=== PATIENT | female | born 1950 | race Caucasian/White ===

== ENCOUNTER 2018-07-29 20:23 | Emergency (ER) | payer MEDICARE ==
--- OUTSIDE RECORDS SUMMARY | 2018-07-29 20:42 | XMS REPORT ---
:1950 External Reference #:[id number] Author Organization [facility] Address [address] [place] [address] Phone [phone] Care Team Providers Name Role Phone Ziyad Zhang MD Care Team Information Meter Readers Supervisor Unavailable Ziyad Zhang MD Primary Care Physician Unavailable Payers Type Date Identification Numbers Payment Provider Subscriber Commercial Effective: Policy Number: Medicare Blue Ppo Medina Correia 2015 [id number] PayID: [id number] [address] [address] [place] [address] Problems Date Description Provider Status Onset: 10/16/2011 Otitis media Ej Schilling M.D. Active Onset: 06/08/2012 Generalized anxiety disorder Ej Schilling M.D. Active Onset: 06/08/2012 Dysthymia Ej Schilling M.D. Active Onset: 01/02/2017 Hypothyroidism Ziyad Zhang M.D. Active Family History Date Family Member(s) Problem(s) Comments Father Long Lived Mother Long Lived Social History Type Date Description Comments Cigarette Use nonsmoker Smoking nonsmoker Allergies, Adverse Reactions, Alerts Date Description Reaction Status Severity Comments 06/08/2012 NKDA active Medications Medication Date Status Form Strength Qnty SIG Indications Ordering Provider Lexapro 05/13 Active Tablets 20mg 30tabs Take One Ziyad Chiu Tablet Breiman, By Mouth M.D. Every Day Synthroid 03/05 Active Tablets 50mcg 30tabs Take One Ziyad Chiu Tablet Breiman, By Mouth M.D. Every Day Gabapentin 05/02 Hx Capsules 100mg 100caps take one Ziyad Chiu capsule Breiman, - by mouth M.D. 10/17 twice day then advance to 2 bid if able Estrace 03/23 Hx Tablets 0.5mg 30tabs use 1 Ziyad Chiu pill a Breiman, - day for M.D. 05/02 days only Lamictal 03/03 Hx Tablets 25mg 30tabs use 1 Ziyad Chiu pill Breiman, - daily M.D. 05/02 Cytomel 04/09 Hx Tablets 5mcg 2 by Ziyad Chiu mouth Breiman, - every M.D. Cytomel 04/09 Hx Tablets 5mcg 60tabs 2 by Ziyad Chiu mouth Breiman, - every M.D. Wellbutrin XL 03/05 Hx Tablets 150mg 90tabs Take One Ziyad Chiu ER 24HR Tablet Breiman, - By Mouth M.D. 07/14 Day Cytomel 02/01 Hx Tablets 5mcg 30tabs 1 by Ziyad Chiu mouth Breiman, - every M.D. Synthroid 01/08 Hx Tablets 25mcg 90tabs 1 by Ziyad Chiu mouth Breiman, - every M.D. Keflex 08/01 Hx Capsules 500mg 14caps 1 tab by Caridad mouth Lomax, - twice a M.D. 01/02 day x week Amoxicillin 07/22 Hx Tablets 500mg 30tabs 1 by Funmilayo mouth Lindsay, - three Afnp-C 08/01 times day Meclizine HCL 09/18 Hx Tablets 25mg 30tabs take 1 H81.10 tablet Damon, - three Afnp-C 09/25 times day if needed for dizzines s Physical 09/18 Hx treatmen H81.10 t and Damon, - evaluati Afnp-C 09/26 on vertigo Doxycycline 08/01 Hx Tablets 100mg 2tabs 2 by S20.469A Funmilayo mouth x Lindsay, - 1 Afnp-C 08/02 Boniva 03/13 Hx Tablets 150mg 3tabs 1 po Marielena /2015 monthly; Sobia, - take on TIN DIPPER 07/22 same day each month sit upright 30" post admin, take with plenty water Nasonex 10/29 Hx Suspensio 50mcg/Act sample 2 786.2 n sprays/n Eri, - ostril/d TIN DIPPER 02/16 Tussafed Ex 10/14 Hx Liquid 10-30-200 50ml 5 ml po 786.2 Marielena /2013 mg/5ML bid prn Sobia, - cough TIN DIPPER 10/29 Ibuprofen 10/14 Hx Tablets 800mg 60tabs take 1 488.82 Marielena /2013 tablet Sobia, - po bid TIN DIPPER 10/29 prn pain Zithromax Z-Kamari 10/14 Hx Tablets 250mg 1Pack as Ziyad Chiu /2012 directed Vicente - M.D. 10/29 Escitalopram 02/23 Hx Tablets 20mg 30tabs take one Ziyad Chiu tablet Vicente, - by mouth M.D. 05/13 day brand name only Amoxicillin 10/16 Hx Tablets 500mg 30tabs 1 po tid 382.9 Pagan A. Yesenia Schilling - 06/08 Claritin-D 24 10/16 Hx Tablets 10-240mg 10tabs 1 po qd 382.9 Pagan A. ER 24HR Yesenia Schilling - 06/08 Lexapro 01/06 Hx Tablets 20mg 90tabs 1 po qd Id#[id number] Eri - 9178 [facility] 02/23 Wellbutrin XL 01/06 Hx Tablets 150mg 90tabs 1 po qd Pagan A. ER 24HR Id#[id number] Yesenia Schilling - 9178 10/14 Topicort 06/28 Hx Cream 0.25% 15units rub in Ziyad Chiu /2009 sparingl Vicente, - y bid M.D. 10/16 prn Cortisporin 06/28 Hx Solution 1units 2gtts Ziyad Chiu Ot tid x Vicente, - 5 days M.D. 01/13 Levaquin 08/03 Hx Tablets 750mg 5tabs 1 po qd 473.0 Jacque Bentley Yaritza Vidal M.D. 06/28 Note 08/03 Hx please Ej Fulton excuse Yesenia Schilling - shilo 06/28 work today and tomorrow due to illness thanks Lexapro 04/14 Hx Tablets 10mg 90tabs 1 PO qd Id#[id number] Eri - 9178 [facility] 01/06 Lamictal 04/14 Hx Tablets 100mg 1 PO qd [facility] 06/28 [place] Lexapro 10/25 Hx Pills 10mg 30units 1 PO qd Ziyad Chiu Yaritza Zhang M.D. 04/14 Wellbutrin 10/25 Hx Tablets 75mg 90tabs 1 tid Id# Eri - [id number] [facility] 01/06 Prozac 10/18 Hx Capsules 10mg 30caps 1 po qd Ziyad Chiu In Yaritza Zhang M.D. 04/14 Current Prozac 20MG. Prozac 10/07 Hx Capsules 20mg 30caps 1 po qd Ziyad Chiu Yaritza Zhang M.D. 04/14 Prozac 09/22 Hx Capsules 10mg 30caps 1 po qd Ziyad Chiu Yaritza Zhang M.D. 10/07 Cortisporin 09/22 Hx Solution 5mg;37521 1units Use 1-2 Ziyad Chiu Otisai /2006 U;10mg/ML gtts Yaritza Zhang tisahara Reynoso M.D. 08/03 5D Vivelle 05/27 Hx Patches 0.075mg/D ay [facility] 06/28 Lunesta 05/27 Hx Tablets 2mg 30tabs 1 QHS 780.52 Yaritza Jose Afnp-C 04/14 Augmentin 10/20 Hx Tablets 875mg 20tabs 1 po bid Ángel Royal with Rosemarie - food x Yesenia 04/14 10 days Zithromax 10/17 Hx Tablets 250mg 6tabs 2 Tabs 461.9 Day 1 Damon, - Afnp-C 10/20 1 Tab qd Days 2 Thru 5 PT 08/19 Hx Bilat Hand Hiljayant, - Pain, Afnp-C 10/17 Related To Overuse Nizoral Shampoo 05/20 Hx Shampoo 2% [facility] 06/19 Areas 2X Week X 1Month Synalar 05/20 Hx Lotion 0.025% 60ml [facility] bid Afnp-C 05/20 Pramosone 05/20 Hx Lotion 1%;1 % 60ml Apply To Affected [facility], - Area tid Afnp-C 06/03 Vivelle 12/16 Hx Patches 0.075mg/D 25units Twice ay Weekly [facility] 12[facility]25 [facility] [place] Amoxicillin 12/16 Hx Tablets 500mg 30tabs 1 tid X 10 Days Damon, - Afnp-C 12/26 Ciprofloxacin 10/17 Hx Suspensio Otic 10ml 3 gtts n into r Damon, - ear bid Afnp-C 10/24 x 7 days Cymbalta 03/24 Hx Capsules 15mg 30caps 1 po qd Ziyad JManju Yaritza Zhang M.D. 03/24 Cymbalta 03/24 Hx Capsules 30mg 14caps 1 po qd Ziyad J. Yaritza Zhang M.D. 05/27 Zithromax 01/06 Hx 250mg 6units 2 tabs day 1 Eri, - TIN DIPPER 10/17 1 tab qd days 2 thru 5 Rhinocort Aqua 01/06 Hx Inhaler Sample 2 sprayS in each Eri, - nostril TIN DIPPER 12/16 qd Keflex 11/28 Hx 500mg 30units 1 po tid Eri, - TIN DIPPER 01/06 Cortisporin 11/28 Hx Solution 10ml 3-4 gtts Denia Ot AU tid X Eri, - 4-5 Days TIN DIPPER 10/17 [place] 06/20 Hx Cream 2Oz apply to skin Damon, - from Afnp-C 11/28 neck down, leave on for 12 hours then wash off Actonel 11/08 Hx 35mg 4units 1 X Week [facility] 09/22 [facility] [place] Menest 11/08 Hx use as directed [facility] 05/08 [facility] [place] Keflex 11/08 Hx 500mg 20units 1 po tid Ziyad J. /2003 X 7 Days Yaritza Zhang M.D. 05/08 Zithromax 01/13 Hx 250mg 6units 2 Tabs Denia Day 1 Eri, - TIN DIPPER 11/08 1 Tab qd Days 2 Thru 5 Zyrtec 01/13 Hx 10mg 30units 1 P PO Denia qd Eri, - TIN DIPPER 05/08 Keflex 08/31 Hx 500mg 30units 1 tid Ziyad Chiu /2001 Yaritza Zhang M.D. 01/13 Antivert 05/20 Hx 25mg 30units 1 tid Ziyad Chiu prn Yaritza Zhang M.D. 01/13 Elimite Cream 08/23 Hx 60Gmtube Apply To ALL Skin Eri, - Surfaces TIN DIPPER 09/02 From Neck Down And Wash Off After 12 To 14 Hours. Hydrocortisone 09/29 Hx 2.5% 30gm apply Funmilayo Cream bid prn Hiljayant, - Afnp-C 10/17 Clarinex 09/29 Hx 10mg 30units 1 qd prn Damon, - Afnp-C 10/09 Cortisporin 07/21 Hx Solution 1Bottle 3-4 gtts Brittny Ot Into Damon, - Left Ear Afnp-C 07/28 tid Prozac 05/27 Hx 10mg 90units 1 po qd Denia Eri, - TIN DIPPER 12/16 Prozac 03/18 Hx 20mg 30units 1 qam Ziyad Chiu /1999 Yaritza Zhang M.D. 04/17 Celexa 12/17 Hx 20mg 30units 1 qd Ziyad Chiu /1999 Yaritza Zhang M.D. 05/27 Prozac 07/15 Hx 20mg 0units 1 qam Ziyad Chiu /1998 Yaritza Zhang M.D. 12/10 Z-Pack 07/15 Hx 1units as Ziyad Chiu /1998 Yaritza Nielson M.D. 07/21 Keflex 05/24 Hx 250mg 28units 1 PO qid Ziyad Chiu /1998 Yaritza Zhang M.D. 07/15 Z-Pack 06/28 Hx 1units as 461.9 Shauna lincoln Kirk [employer] - 02/25 Flonase 06/28 Hx Nasal Oneinhalr 2 Sprays Sray Each Konefal, - Nostril SLEEVE SEPARATOR-F 10/03 Cephalexin 06/22 Hx 20units 1 bid For 10 Konefal, - Day SLEEVE SEPARATOR-F 07/02 Entex Pse 06/22 Hx 20units 1 PO Q 12 HRS Konefal, - prn Head SLEEVE SEPARATOR-F 06/22 Congesti /1997 on Guafenesin 06/22 Hx 600mg 14units Take Twice A Konefal, - Day as SLEEVE SEPARATOR-F 06/29 Needed For Congesti on, Ear Blockage Prozac 03/07 Hx 20mg 30units 1 PO qd Ziyad Chiu /1997 Yaritza Zhang M.D. 07/15 Paxil 02/23 Hx 10mg 30units 1 PO qd Ziyad Chiu /1997 Yaritza Zhang M.D. 03/07 Keflex 09/14 Hx 5Oomg 14units 1 PO bid Ziyad Chiu /1996 Yaritza Zhang M.D. 09/21 Prozac 05/19 Hx 10mg 0units 1 PO qam Ziyad Chiu /1996 Yaritza Zhang M.D. 09/06 Boniva Hx 150mg 4units [address] [facility] 02/16 Wellbutrin XL Hx Tablets 300mg 1 by Unknown /0000 ER 24HR mouth - every 09/18 day- Isabel ignacio Wellbutrin SR 00 Hx Tablets 100mg 1 by Unknown /0000 ER 12HR mouth - every 01/02 day- Isabel ignacio Immunizations CPT Code Status Date Vaccine Lot # [id number] Given 07/08/2018 High-Dose, Influenza Virus Vacccine-fluzone 65 and [id number] older [id number] Given 09/10/2017 High-Dose, Influenza Virus Vacccine-fluzone 65 and [id number] older 94691 Given 01/02/2017 Pneumococcal Conjugate Vacc-13 [id number] 59598 Given 07/22/2016 Influenza Vac, Quadrivalent, Slit Virus, Im [id number] 78086 Given 08/01/2015 Influenza Vac, Quadrivalent, Slit Virus, Im [id number] 38975 Given 07/01/2014 DO Not Use Split Influenza Virus Vaccine [id number] 46823 Given 07/13/2013 DO Not Use Split Influenza Virus Vaccine [id number] 77452 Given 08/05/2007 DO Not Use Split Influenza Virus Vaccine Vital Signs Date Vital Result Comment 07/28/2018 BP Systolic 106 mmHg BP Diastolic 64 mmHg Heart Rate 78 /min Body Temperature 98.1 F Respiratory Rate 16 /min Height 60 inches 5'0" Weight 124.50 lb BMI (Body Mass Index) 24.3 kg/m2 01/02/2017 BP Systolic 100 mmHg BP Diastolic 70 mmHg Heart Rate 60 /min Body Temperature 98.0 F Respiratory Rate 18 /min Height 60 inches 5'0" Weight 127.00 lb BMI (Body Mass Index) 24.8 kg/m2 07/22/2016 BP Systolic 122 mmHg BP Diastolic 74 mmHg Heart Rate 84 /min Body Temperature 98.2 F Respiratory Rate 18 /min O2 % BldC Oximetry 98 % Height 62 inches 5'2" Weight 130.00 lb BMI (Body Mass Index) 23.8 kg/m2 09/18/2015 BP Systolic 130 mmHg BP Diastolic 90 mmHg Heart Rate 72 /min Body Temperature 98.6 F Respiratory Rate 16 /min Height 62 inches 5'2" Weight 128.38 lb BMI (Body Mass Index) 23.5 kg/m2 08/01/2015 BP Systolic 110 mmHg BP Diastolic 56 mmHg Heart Rate 76 /min Body Temperature 99.1 F Respiratory Rate 16 /min Height 62 inches 5'2" Weight 126.00 lb BMI (Body Mass Index) 23.0 kg/m2 03/13/2015 BP Systolic 130 mmHg BP Diastolic 84 mmHg Heart Rate 88 /min Body Temperature 99.2 F Respiratory Rate 16 /min Height 62 inches 5'2" Weight 124.00 lb BMI (Body Mass Index) 22.7 kg/m2 02/16/2015 BP Systolic 120 mmHg BP Diastolic 80 mmHg Heart Rate 78 /min Body Temperature 98.5 F Respiratory Rate 16 /min Height 62 inches 5'2" Weight 125.00 lb BMI (Body Mass Index) 22.9 kg/m2 07/13/2013 BP Systolic 112 mmHg BP Diastolic 70 mmHg Heart Rate 74 /min Body Temperature 98.1 F Respiratory Rate 16 /min Height 62 inches 5'2" Weight 125.00 lb BMI (Body Mass Index) 22.9 kg/m2 10/29/2012 BP Systolic 100 mmHg BP Diastolic 72 mmHg Heart Rate 68 /min Body Temperature 97.6 F Height 62 inches 5'2" Weight 127.00 lb BMI (Body Mass Index) 23.2 kg/m2 10/14/2012 BP Systolic 110 mmHg BP Diastolic 80 mmHg Heart Rate 112 /min Body Temperature 101.8 F Height 62 inches 5'2" Weight 130.25 lb BMI (Body Mass Index) 23.8 kg/m2 06/08/2012 BP Systolic 118 mmHg BP Diastolic 76 mmHg Heart Rate 78 /min Body Temperature 97.3 F Height 62 inches 5'2" Weight 130.00 lb BMI (Body Mass Index) 23.8 kg/m2 10/16/2011 BP Systolic 96 mmHg BP Diastolic 72 mmHg Heart Rate 102 /min Body Temperature 97.4 F Height 62 inches 5'2" Weight 130.00 lb BMI (Body Mass Index) 23.8 kg/m2 06/28/2010 BP Systolic 104 mmHg BP Diastolic 72 mmHg Heart Rate 84 /min Body Temperature 98.5 F Height 62 inches 5'2" Weight 128.00 lb BMI (Body Mass Index) 23.4 kg/m2 07/23/2009 BP Systolic 122 mmHg BP Diastolic 70 mmHg Heart Rate 80 /min Body Temperature 99.1 F Height 62 inches 5'2" Weight 130.00 lb BMI (Body Mass Index) 23.8 kg/m2 08/03/2008 BP Systolic 106 mmHg BP Diastolic 68 mmHg Heart Rate 88 /min Body Temperature 99.3 F Weight 126.00 lb 04/14/2008 BP Systolic 120 mmHg BP Diastolic 80 mmHg Heart Rate 80 /min Body Temperature 99.2 F Respiratory Rate 12 /min Weight 126.00 lb 09/22/2007 BP Systolic 118 mmHg BP Diastolic 68 mmHg Heart Rate 76 /min Body Temperature 97.7 F Weight 127.00 lb 05/27/2007 BP Systolic 160 mmHg BP Diastolic 60 mmHg Heart Rate 64 /min Body Temperature 97.6 F Weight 129.00 lb 12/25/2006 BP Systolic 130 mmHg BP Diastolic 80 mmHg Body Temperature 98.4 F Weight 125.00 lb 10/17/2006 BP Systolic 108 mmHg BP Diastolic 76 mmHg Heart Rate 80 /min Body Temperature 97.4 F Weight 125.00 lb 08/19/2006 BP Systolic 104 mmHg BP Diastolic 60 mmHg Heart Rate 78 /min Respiratory Rate 12 /min Weight 128.00 lb 05/20/2006 BP Systolic 118 mmHg BP Diastolic 68 mmHg Heart Rate 76 /min Body Temperature 98.1 F Respiratory Rate 15 /min 12/16/2005 BP Systolic 120 mmHg BP Diastolic 80 mmHg Heart Rate 76 /min Body Temperature 98.4 F 10/17/2005 BP Systolic 122 mmHg BP Diastolic 60 mmHg Body Temperature 99.2 F 08/13/2005 BP Systolic 118 mmHg BP Diastolic 72 mmHg Heart Rate 70 /min Body Temperature 98.1 F Weight 121.00 lb 02/12/2005 BP Systolic 134 mmHg BP Diastolic 86 mmHg Heart Rate 78 /min Body Temperature 98.8 F Weight 123.00 lb 01/27/2005 BP Systolic 126 mmHg BP Diastolic 90 mmHg Heart Rate 78 /min Body Temperature 98.2 F Weight 123.00 lb 11/28/2004 BP Systolic 112 mmHg BP Diastolic 70 mmHg Body Temperature 98.3 F 05/08/2004 BP Systolic 122 mmHg BP Diastolic 76 mmHg Heart Rate 74 /min Weight 121.00 lb 11/08/2003 BP Systolic 122 mmHg BP Diastolic 70 mmHg Body Temperature 98.6 F 01/13/2003 BP Systolic 110 mmHg BP Diastolic 70 mmHg Body Temperature 97.9 F Weight 127.00 lb 08/31/2002 BP Systolic 140 mmHg BP Diastolic 90 mmHg Heart Rate 84 /min Weight 123.00 lb 08/23/2001 Body Temperature 97.6 F Weight 123.00 lb 07/28/2001 BP Systolic 110 mmHg BP Diastolic 78 mmHg Heart Rate 68 /min Weight 127.00 lb 09/29/2000 BP Systolic 116 mmHg BP Diastolic 68 mmHg Heart Rate 76 /min Body Temperature 97.4 F Weight 124.00 lb 07/21/2000 BP Systolic 108 mmHg BP Diastolic 70 mmHg Body Temperature 97.7 F Weight 121.00 lb 05/27/2000 BP Systolic 120 mmHg BP Diastolic 70 mmHg Weight 121.00 lb 12/11/1999 BP Systolic 100 mmHg BP Diastolic 70 mmHg Weight 121.50 lb 05/24/1999 Body Temperature 99.0 F Weight 122.00 lb 10/03/1998 BP Systolic 136 mmHg BP Diastolic 80 mmHg Weight 127.00 lb 07/03/1998 BP Systolic 120 mmHg BP Diastolic 80 mmHg Body Temperature 97.5 F Weight 126.00 lb 06/22/1998 BP Systolic 110 mmHg BP Diastolic 80 mmHg Weight 123.00 lb 02/23/1998 Weight 122.50 lb 01/31/1998 BP Systolic 120 mmHg BP Diastolic 80 mmHg Body Temperature 98.8 F With Asa Height 61 inches 5'1" Weight 121.00 lb 09/06/1997 BP Systolic 130 mmHg BP Diastolic 90 mmHg Body Temperature 97.0 F Weight 120.00 lb Results Test Date Test Result H/L Range Note Laboratory test finding 02/02/2018 Sedimentation Rate 5mm Lyme, Western Blot, Serum 02/02/2018 IgG P93 Ab. Absent 1 IgG P66 Ab. Absent 1 IgG P58 Ab. Absent 1 IgG P45 Ab. Absent 1 IgG P41 Ab. Absent 1 IgG P39 Ab. Absent 1 IgG P30 Ab. Absent 1 IgG P28 Ab. Absent 1 IgG P23 Ab. Absent 1 IgG P18 Ab. Absent 1 Lyme IgG WB Interp. Negative 1, 2 IgM P41 Ab. Absent 1 IgM P39 Ab. Absent 1 IgM P23 Ab. Absent 1 Lyme IgM WB Interp. Negative 1, 3 Laboratory test finding 02/02/2018 Estrogens, Total 44 pg/mL 1, 4 Cortisol, Baseline 17.6 g/dL 1, 5 CBC Electronic Fma 02/02/2018 WBC 4.9 x10^3/UL 4.0-10.0 RBC 4.39 x10^6/UL 3.93-6.00 HGB 13.7 g/dL 12.0-17.0 HCT 41 % 35-50 MCV 93.2 fL 80.0-95.0 MCH 31.2 pg 25.6-32.2 MCHC 33.5 g/dL 32.2-36.0 RDW-CV 12.8 % 11.6-14.4 PLT 250 x10^3/UL 163-400 MPV 10.4 fL 9.4-12.4 Vashti# 2.61 x10^3/UL 1.56-6.13 Lymph# 1.53 x10^3/UL 1.18-3.74 Pope# 0.47 x10^3/UL 0.24-0.82 Eos # 0.2 x10^3/UL 0.0-0.5 Baso # 0.04 x10^3/UL 0.01-0.08 Vashti% 53.5 % 34.0-70.0 Lymph % 31.4 % 20.0-52.0 Pope% 9.6 % 5.0-12.0 Eos% 4.5 % 0.7-7.0 Baso% 0.8 % 0.1-1.2 Laboratory test finding 02/02/2018 Serum Iron 112 g/dL 60-150 Vitamin B-12 433 pg/mL 230-1050 TSH 2.20 mIU/L 0.50-6.00 Free T4 1.05 ng/dL 0.75-1.54 Free T3 2.01 pg/mL 2.00-4.90 CK 110 U/L 26-140 FSH, Serum 02/02/2018 FSH 98.7 mIU/mL 1, 6 Laboratory test finding 02/02/2018 C-Reactive Protein, 0.5 mg/L 0.0-4.9 1 Quant Antinuclear Antibodies, Ifa Negative 1, 7 Comprehensive Metabolic Prof 02/02/2018 Sodium 134 mEq/L 134-149 Potassium 4.3 mEq/L 3.6-5.5 Chloride 99 mEq/L 94-112 Carbon Dioxide 25 mEq/L 21-32 Glucose 104 mg/dL 70-105 BUN 17 mg/dL 6-26 Creatinine 0.7 mg/dL 0.6-1.4 BUN/Creat Ratio 24.3 CALC 8.0-36.0 Calcium 9.5 mg/dL 8.6-10.2 Total Protein 6.6 g/dL 6.4-8.3 Albumin 4.4 g/dL 3.8-5.5 Globulin 2.2 g/dL 2.0-4.8 A/G Ratio 2.0 CALC 0.6-2.3 Alk. Phosphatase 73 U/L 30-110 Alt (SGPT) 36 U/L High 7-35 8 Ast (Sgot) 28 U/L 5-34 Total Bilirubin 0.4 mg/dL 0.2-1.3 GFR Non- >60 ml/min/1.73m^ >=60 GFR >60 ml/min/1.73m^ >=60 Laboratory test finding 06/08/2017 TSH 0.33 mIU/L Low 0.50-6.00 9 Free T3 2.53 pg/mL 2.00-4.90 Free T4 0.88 ng/dL 0.75-1.54 Laboratory test finding 04/06/2017 TSH 2.21 mIU/L 0.50-6.00 Free T4 0.85 ng/dL 0.75-1.54 Free T3 1.96 pg/mL Low 2.00-4.90 Lyme AB/Western Blot Reflex 03/02/2017 Lyme IgG/IgM Ab <0.91 ISR 0.00- 0.90 10, 11 Lyme Disease Ab, Quant, IgM <0.80 index 0.00-0.79 10, 12 Laboratory test finding 03/02/2017 Cortisol 20.7 g/dL 10, 13 Laboratory test finding 03/02/2017 Free T4 0.71 ng/dL Low 0.75-1.54 14 TSH 4.03 mIU/L 0.50-6.00 Free T3 2.37 pg/mL 2.00-4.90 15 Laboratory test finding 01/29/2017 TSH 5.38 mIU/L 0.50-6.00 Free T3 2.35 pg/mL 2.00-4.90 Free T4 0.98 ng/dL 0.75-1.54 Complete Blood Count 01/07/2017 WBC 4.7 x10^3/UL 3.6-9.6 RBC 4.49 x10^6/UL 3.90-5.70 HGB 14.2 g/dL 12.1-17.2 HCT 42 % 36-50 MCV 94.0 fL 82.2-97.4 MCH 31.6 pg 27.6-33.3 MCHC 33.6 g/dL 33.0-35.5 RDW 13.7 % 11.6-13.7 PLT 276 x10^3/UL 150-400 MPV 7.5 fL 7.4-10.4 Gran # 2.6 x10^3/UL 1.5-7.2 Lymph# 1.8 x10^3/UL 0.7-4.9 Pope# 0.3 x10^3/UL 0.1-0.9 Gran % 54.1 % 42.2-75.2 Lymph % 39.3 % 20.5-51.1 Pope% 6.6 % 1.7-9.3 Comprehensive Metabolic Prof 01/07/2017 Sodium 143 mEq/L 134-149 Potassium 5.5 mEq/L 3.6-5.5 Chloride 107 mEq/L 94-112 Carbon Dioxide 26 mEq/L 21-32 Glucose 121 mg/dL High 70-105 16 BUN 14 mg/dL 6-26 Creatinine 0.8 mg/dL 0.6-1.4 BUN/Creat Ratio 17.5 CALC 8.0-36.0 Calcium 9.8 mg/dL 8.6-10.2 Total Protein 6.6 g/dL 6.4-8.3 Albumin 4.1 g/dL 3.8-5.5 Globulin 2.5 g/dL 2.0-4.8 A/G Ratio 1.6 CALC 0.6-2.3 Alk. Phosphatase 70 U/L 30-110 Alt (SGPT) 15 U/L 7-35 Ast (Sgot) 24 U/L 5-34 Total Bilirubin 0.6 mg/dL 0.2-1.3 GFR Non- >60 ml/min/1.73m^ >=60 GFR >60 ml/min/1.73m^ >=60 Laboratory test finding 01/07/2017 Free T4 0.96 ng/dL 0.75-1.54 TSH 8.04 mIU/L High 0.50-6.00 17 Vitamin B-12 792 pg/mL 230-1050 Vitamin D25 51 30-100 Lipid Profile 01/07/2017 Cholesterol 206 mg/dL High 120-200 Triglycerides 115 mg/dL 30-200 HDL Cholesterol 75 mg/dL 30-85 LDL (Calculated) 108 CALC 0-129 VLDL Cholesterol 23 mg/dL 0-50 HDL Risk Factor 2.7 CALC 0.0-4.4 CBC Electronic (Fma) 09/18/2015 WBC 5.2 3.6-9.6 RBC 4.17 3.90-5.70 Hemoglobin (Fma/CMC/CTX) 13.2 g/dL 12.1 - 17.2 Hematocrit (Fma/CMC/CTX) 39.8 % 36.1 - 50.3 Platelets 251 10^3/ul 150-400 Lymph% 34.9 % 17.0-48.0 Mixed% 6.7 Neutrophils % 58.4 Mean Corpuscular Vol 95 82.2-97.4 Mean Corpuscular Hemoglobin 31.7 27.6-33.3 Mean Corpuscular Hemo Concen 33.3 32.0-36.0 RDW 13.5 11.6-13.7 Mean Platelet Volume 7.4 5.5-11.0 Comprehensive Metabolic Prof 09/18/2015 Sodium 146 mEq/L 134-149 Potassium 5.2 mEq/L 3.6-5.5 Chloride 102 mEq/L 94-112 Carbon Dioxide 24 mEq/L 21-32 Glucose 97 mg/dL 70-105 BUN 20 mg/dL 6-26 Creatinine 0.8 mg/dL 0.6-1.4 BUN/Creat Ratio 25.0 CALC 8.0-36.0 Calcium 10.2 mg/dL 8.6-10.2 Total Protein 6.8 g/dL 6.4-8.3 Albumin 4.2 g/dL 3.8-5.5 Globulin 2.6 g/dL 2.0-4.8 A/G Ratio 1.6 CALC 0.6-2.3 Alk. Phosphatase 59 U/L 30-110 Alt (SGPT) 13 U/L 7-35 Ast (Sgot) 21 U/L 5-34 Total Bilirubin 0.2 mg/dL 0.2-1.3 GFR Non- >60 ml/min/1.73m^ >=60 GFR >60 ml/min/1.73m^ >=60 Anti Thyroid Abs(Kalin/Tpo) 03/13/2015 Thyroid Peroxidase (Tpo) Ab 14 IU/mL 0-34 18 Thyroglobulin, Antibody 3.4 IU/mL High 0.0-0.9 18, 19 Laboratory test finding 03/13/2015 Free T3 1.93 pg/mL Low 2.00-4.90 20 Free T4 0.83 ng/dL 0.75-1.54 TSH 3.51 mIU/L 0.50-6.00 Glucose, Serum 137 mg/dL High 70-105 Laboratory test 03/13/2015 Prolactin 7.3 ng/ml 18, 21 finding Laboratory test 03/13/2015 Hemoglobin A1c 5.2 % 4.1-5.7 finding (Fma/CMC,CX) Complete Blood Count 02/27/2015 WBC 5.0 x10^3/UL 3.6-9.6 RBC 4.44 x10^6/UL 3.90-5.70 HGB 14.1 g/dL 12.1-17.2 HCT 42 % 36-50 MCV 94.0 fL 82.2-97.4 MCH 31.8 pg 27.6-33.3 MCHC 33.7 g/dL 33.0-35.5 RDW 13.4 % 11.6-13.7 PLT 248 x10^3/UL 150-400 MPV 7.3 fL Low 7.4-10.4 Gran # 3.0 x10^3/UL 1.5-7.2 Lymph# 1.6 x10^3/UL 0.7-4.9 Pope# 0.4 x10^3/UL 0.1-0.9 Gran % 56.7 % 42.2-75.2 Lymph % 33.9 % 20.5-51.1 Pope% 9.3 % 1.7-9.3 Laboratory test finding 02/27/2015 TSH 6.82 mIU/L High 0.50-6.00 22 Comprehensive Metabolic Prof 02/27/2015 Sodium 141 mEq/L 134-149 Potassium 5.0 mEq/L 3.6-5.5 Chloride 100 mEq/L 94-112 Carbon Dioxide 28 mEq/L 21-32 Glucose 108 mg/dL High 70-105 23 BUN 16 mg/dL 6-26 Creatinine 0.8 mg/dL 0.6-1.4 BUN/Creat Ratio 20.0 CALC 8.0-36.0 Calcium 9.2 mg/dL 8.6-10.2 Total Protein 6.4 g/dL 6.4-8.3 Albumin 4.0 g/dL 3.8-5.5 Globulin 2.3 g/dL 2.0-4.8 A/G Ratio 1.7 CALC 0.6-2.3 Alk. Phosphatase 59 U/L 30-110 Alt (SGPT) 14 U/L 7-35 Ast (Sgot) 21 U/L 5-34 Total Bilirubin 0.4 mg/dL 0.2-1.3 Lipid Profile 02/27/2015 Cholesterol 196 mg/dL 120-200 Triglycerides 147 mg/dL 30-200 HDL Cholesterol 59 mg/dL 30-85 LDL (Calculated) 108 CALC 0-129 VLDL Cholesterol 29 mg/dL 0-50 HDL Risk Factor 3.3 CALC 0.0-4.4 Influenza A&B 10/14/2012 Influenza A NEG Influenza B NEG Surgical Pathology 01/08/2010 Surgical <SEE 24 Pathology NOTE> Comprehensive 01/24/2008 Albumin 4.1 g/dL 3.8-5.5 Metabolic Prof Alk. Phos. 51 U/L 30-110 Alt (SGPT) 21 U/L 7-35 Ast (Sgot) 30 U/L 5-34 BUN 18 mg/dL 6-26 Calcium 9.5 mg/dL 8.6-10.2 Chloride 103 mEq/L 94-112 Creatinine 1.1 mg/dL 0.6-1.4 Carbon Dioxide 29 mEq/L 21-32 Glucose 60 mg/dL Low 70-105 25 Sodium 140 mEq/L 134-149 Total Bilirubin 0.3 mg/dL 0.2-1.3 Total Protein 6.5 g/dL 6.3-8.1 Potassium 4.0 mEq/L 3.6-5.5 Globulin 2.4 g/dL 2.0-4.8 A/G Ratio 1.7 Calc 0.6-2.2 BUN/Creat Ratio 16.6 Calc 8.0-36.0 Complete Blood Count 01/24/2008 WBC 5.0 x10^3/u 3.6-9.6 Gran# 3.2 x10^3/u 1.5-7.2 Gran% 63.1 % 42.2-75.2 HCT 39 % 36-50 HGB 13.0 g/dL 12.1-17.2 Lymph# 1.6 x10^3/u 0.7-4.9 Lymph% 32.1 % 20.5-51.1 MCH 32.5 pg 27.6-33.3 MCV 97.8 fL High 82.2-97.4 MCHC 33.2 g/dL 33.0-35.5 Mo# 0.2 x10^3/u 0.1-0.9 Mo% 4.8 % 1.7-9.3 MPV 8.9 fL 7.4-10.4 PLT 218 x10^3/u 150-400 RBC 3.99 x10^6/u 3.90-5.70 RDW 13.5 % 11.6-13.7 Laboratory test finding 01/24/2008 TSH 3.14 mIU/L 0.50-6.00 Gram Neg Chencho Sensitivity 06/28/2007 Ampicillin 4 Amikacin <=2 Ciprofloxacin <=0.25 Cefotetan <=4 Ceftriaxone <=1 Cefazolin <=4 Nitrofurantoin <=16 Gentamicin <=1 Imipenem <=1 Levofloxacin <=0.25 Cefuroxime 8 Trimeth-Sulfa <=20 Ceftazidime <=1 Piperacillin/Tazobactam <=4 Urine Culture & 06/27/2007 Urine Culture MODERATE [ESCHER See Image 26 Sensitivities Sensitivi <SEE NOTE> Report Surgical Pathology 02/01/2007 Surgical 27 Pathology <SEE NOTE> Basic Metabolic (Fma) 02/04/2005 Glucose, Serum 95 mg/dL 70-105 (Fma/CMC/CTX) BUN (Fma/CMC/Centrex) 15 mg/dL 6-26 Creatinine (Fma/CMC/CTX) 0.9 mg/dL 0.6-1.4 BUN/Creatinin Ratio 16.7 8.0-36 Sodium 141 134-149 Potassium 4.6 3.6-5.5 Chloride 100 mEq/L 94-112 Co2 27 21-32 Calcium (Fma/CMC/Centrex) 9.6 mg/dL 8.6-10.2 Lyme Igg/M W/Reflx 02/03/2005 Lyme Ab/Total Negative 0.00-0.90 28 West Immunoglobulins Lyme Disease Ab, Quant, IgM Negative 0.00-0.90 29 Ebv Acute AB 02/03/2005 Ebv Ab Vca, IgM Negative 0-19 30 Ebv Early Antigen Ab, IgG Negative Negative 31 Ebv Ab Vca, IgG >170 AU High 0-19 32 Ebv Nuclear Antigen Ab, IgG 38 AU High 0-19 33 Laboratory test finding 02/03/2005 Cytomegalovirus AB,Igm Negative 0.00- 0.90 34 Basic Metabolic ([facility]) 09/29/2004 Sodium 137 mmol/L 135-145 Potassium 4.1 mmol/L 3.5-5.0 Chloride 103 mmol/L 101-111 Co2 24.0 mmol/L 22-32 Anion Gap 10.0 mmol/L 2-11 Glucose, Serum (a/CMC/CTX) 144 mg/dL High 70-105 BUN (a/CMC/Centrex) 23 mg/dL 6-24 Creatinine (a/CMC/CTX) 0.8 mg/dL 0.5-1.4 BUN/Creatinin Ratio 28.8 High 8-20 Calcium (a/CMC/Centrex) 9.1 mg/dL 8.7-10.2 CBC Electronic ([facility]) 09/29/2004 WBC 12.6 CUMM High 4.8-10.8 RBC 4.76 CUMM 4.2-5.4 Hemoglobin (a/CMC/CTX) 15.5 g/dL 12.0-16.0 Hematocrit (a/CMC/CTX) 45 % 35-47 Mean Corpuscular Vol 94 UM3 79-97 Mean Corpuscular Hemaglobin 33 pg High 27-31 Mean Corpuscular Hemo Concen 35 g/dL 32-36 RDW 13 10.5-15 Platelets 238 CUMM 150-450 Mean Platelet Volume 8.7 7.4-10.4 Granulocytes 92.3 % High 38-83 Lymphocytes 3.5 % Low 20-45 Monocytes 4.0 % 1-9 Eosinophil 0.2 0-6 Basophil% 0 0-2 Abs Lymphs 0.4 Low 1.0-4.8 Abs Mononuclear 0.5 0-0.8 Abs Grans 11.6 High 1.5-7.7 Abs Eosinophils 0 0-0.6 Abs Basophils 0 0-0.2 CBC Electronic ([facility]) 03/20/2003 WBC 3.4 CUMM Low 4.8-10.8 RBC 3.63 CUMM Low 4.2-5.4 Hemoglobin (Fma/CMC/CTX) 11.2 g/dL Low 12.0-16.0 Hematocrit (Fma/CMC/CTX) 33 % Low 35-47 Mean Corpuscular Vol 91 UM3 79-97 Mean Corpuscular Hemaglobin 31 pg 27-31 Mean Corpuscular Hemo Concen 34 g/dL 32-36 RDW 13 10.5-15 Platelets 234 CUMM 150-450 Mean Platelet Volume 8.0 7.4-10.4 Granulocytes 58.8 % 38-83 Lymphocytes 26.8 % 20-45 Monocytes 10.6 % High 1-9 Eosinophil 2.7 0-6 Basophil% 1.1 0-2 Abs Lymphs 0.9 Low 1.0-4.8 Abs Mononuclear 0.4 0-0.8 Abs Grans 2.0 1.5-7.7 Abs Eosinophils 0.1 0-0.6 Abs Basophils 0 0-0.2 Comp Metabolic ([facility]) 12/12/1999 Albumin 4.2 GM/DL 3.80 - 5.50 Alkaline Phosphatase 55 U/L 39-130 Bilirubin, Total 0.2 mg/dL 0.2-1.3 BUN 14 mg/dL 10-26 Calcium 8.6 mg/dL 7.4-9.2 Creatinine 0.7 mg/dL 0.6-1.4 Glucose 84 mg/dL 70 - 118 Ast Sgot 18 U/L 9-44 Alt (SGPT) 11 U/L 0-28 Total Protein 6.4 g/dL 6.3-8.1 Sodium 140 mEq/L 134-149 Potassium 4.7 mEq/L 3.6-5.5 Chloride 104 mEq/L 94-112 Co2 30 21-32 Globulin 2.2 2.0-4.8 Albumin / Globulin Ratio 1.9 0.6-2.2 BUN/Creatinin Ratio 20.0 8.0-36 CBC With Diff ([facility]) 12/12/1999 WBC 6.7 /Hpf 3.6 - 9.6 Lymphocytes 22.6 % 20.5 - 51.1 Monocytes 7.1 % 1.7 - 9.3 Granulocytes 70.3 % 42.2 - 75.2 Lymphocytes 1.5 10^3/uL 0.7 - 4.9 Monocytes 0.5 10^3/uL 0.1 - 0.9 Granulocytes 4.7 10^3/uL 1.5 - 7.2 RBC 3.90 /Hpf 3.90 - 5.70 Hemoglobin 11.6 g/dL Low 12.1 - 17.2 Hematocrit 36.5 % 36.1 - 50.3 Mean Corpuscular Vol 93.4 fl 82.2 - 97.4 Mean Corpuscular Hemaglobin 29.8 pg 27.6 - 33.3 Mean Corpuscular Hemo Concen 31.9 g/dL Low 33.0 - 34.8 RDW 15.4 % High 11.6 - 13.7 Platelets 214 10^3/ul 150-400 Mean Platelet Volume 7.9 fl 7.4 - 10.4 Laboratory test finding 12/12/1999 Free T4 11.56 pg/mL 7.0-15.5 TSH 2.23 uIU/ML 0.4-4.2 1 1 serum pour off 2 Positive: 5 of the following Borrelia-specific bands: 18,23,28,30,39,41,45,58, 66, and 93. Negative: No bands or banding patterns which do not meet positive criteria. 3 Note: An equivocal or positive EIA result followed by a negative Western Blot result is considered NEGATIVE. An equivocal or positive EIA result followed by a positive Western Blot is considered POSITIVE by the CDC. Positive: 2 of the following bands: 23,39 or 41 Negative: No bands or banding patterns which do not meet positive criteria. Criteria for positivity are those recommended by CDC/ASTPHLD. p23=Osp C, c70=unopszwju Note: Sera from individuals with the following may cross react in the Lyme Western Blot assays: other spirochetal diseases (periodontal disease, leptospirosis, relapsing fever, yaws, and pinta); connective autoimmune (Rheumatoid Arthritis and Systemic Lupus Erythematosus and also individuals with Antinuclear Antibody); other infections (Bromide Spotted Fever; Vandana-Butler Virus, and Cytomegalovirus). 4 Prepubertal <40 Female Cycle: 1-10 Days 61 - 394 11-20 Days 122 - 437 21-30 Days 156 - 350 Post-Menopausal <40 HMG Treatment for Ovulation Induction: 400 - 800 5 Cortisol AM 6.2 - 19.4 Cortisol PM 2.3 - 11.9 6 Adult Female: Follicular phase 3.5 - 12.5 Ovulation phase 4.7 - 21.5 Luteal phase 1.7 - 7.7 Postmenopausal 25.8 - 134.8 7 Negative <1:80 Borderline 1:80 Positive >1:80 8 RESULTS VERIFIED BY REPEAT ANALYSIS 9 RESULTS VERIFIED BY REPEAT ANALYSIS 10 1 sst 11 Negative <0.91 Equivocal 0.91 - 1.09 Positive >1.09 12 Negative <0.80 Equivocal 0.80 - 1.19 Positive >1.19 IgM levels may peak at 3-6 weeks post infection, then gradually decline. 13 Cortisol AM 6.2 - 19.4 Cortisol PM 2.3 - 11.9 14 RESULTS VERIFIED BY REPEAT ANALYSIS 15 FASTING 16 consistent w/ previous results 17 RESULTS VERIFIED BY REPEAT ANALYSIS 18 2 sst 19 Low positive Thyroglobulin antibodies are seen in a portion of the asymptomatic populations. Antithyroglobulin antibodies measured by [employer] 20 RESULTS VERIFIED BY REPEAT ANALYSIS 21 . FEMALES: Non : 2.8-29.2 : 9.7-208.5 Postmenopausal : 1.8-20.3 MALES:................: 2.1-17.7 . 22 RESULTS VERIFIED BY REPEAT ANALYSIS 23 RESULTS VERIFIED BY REPEAT ANALYSIS 24 ---- RUN DATE: 01/10/10 [facility] NMI LIVE PAGE 1 RUN TIME: 1529 Specimen Inquiry RUN USER: INTERFACE -- Name: SHILO CORREIA#: [id number] Status: REG REF Re01/08/10 Age/Sex: 59/F Unit#: [id number] Location: [facility] : 50 -- Specimen: [id number] Spec Date: 01/08/[address]: Jonathon liu MD Spec Type: SURGICAL P Received: 01/09/10-828 Copies to: Ziyad Zhang MD SPECIMEN BIOPSY SIGMOID COLON HISTORY PRE-OP DIAGNOSIS: Rule out microscopic colitis CLINICAL INFORMATION: Stool incontinence; diarrhea GROSS DESCRIPTION The specimen is received in formalin labelled Shilo Correia, Biopsy Sigmoid Colon, and consists of two, stuart, soft tissue fragments measuring 0.3 x 0.1 x 0.2 cm. Submitted entirely, one cassette. DIAGNOSIS Colon, sigmoid, biopsy: A. Large intestinal mucosa with focal stromal fibrosis, architectural disorder, and lamina propria muciphages (see comment). B. Focal hyperplastic change. COMMENT These findings are most indicative of a prior destructive insult with regeneration. There is no evidence of an active inflammatory process in this biopsy. Specific features of microscopic/lymphocytic colitis, collagenous colitis, or other chronic inflammatory bowel process are not identified. Signed Electronically by: SUNNY CORMIER MD 01/10/10 1529 -- -- DEPARTMENT OF PATHOLOGY, [address] [place] [address] [facility] Permit #[id number] Sunny Cormier M.D. Director Jenn Vega M.D. Network Systems Operator Dir enmanuel -- 25 RESULT [place] 26 MODERATE [ESCHERICHIA COLI] 25^10-25,000 ORGANISMS/ML (MODERATE)^CCU ESCHERICHIA COLI 27 ---- RUN DATE: 02/02/07 [facility] NMI LIVE PAGE 1 RUN TIME: 1905 Specimen Inquiry RUN USER: INTERFACE [id number] SHILO CORREIA 56/F <REG REF 02/01> ([id number]) Jonathon Bhagat MD -- Specimen: [id number] Spec Date: 02/01/[address]: Jonathon liu MD Spec Type: SURGICAL P Received: 02/01/07-1127 Copies to: Ziyad Potts [facility] SPECIMEN BIOPSY COLON AT 35 CM. HISTORY CLINICAL INFORMATION: Screening colonoscopy; denies symptoms. GROSS DESCRIPTION The specimen is received in formalin labelled Shilo Correia, Biopsy Colon at 35 cm., and consists of one, 0.2 cm. pink bit. Total, one block. DIAGNOSIS Colon, 35 cm., biopsy - No significant pathologic abnormality. Signed Electronically by: ANDRÉS ZUÑIGA MD 02/02/07 1906 -- -- DEPARTMENT OF PATHOLOGY, [address] [place] [address] [facility] Permit #[id number] Andrés Zuñiga II, M.D. Director Yesenia Puente irector -- 28 Negative <0.91 Equivocal 0.91 - 1.09 Positive >1.09 Note: The CDC currently advises that Western blot testing be performed following all equivocal or positive EIA results. Final diagnosis should include appropriate clinical findings and a positive EIA which is also positive by Western blot. 29 Negative <0.91 Equivocal 0.91 - 1.09 Positive >1.09 . Note: IgM levels may peak at 3-6 weeks post infection, then gradually decline. FDA currently advises that Western Blot testing be performed following all equivocal or positive EIA results. Final diagnosis should include appropriate clinical findings and a positive EIA which is also positive by Western Blot. 30 Negative <20 Positive >19 31 Positive results suggest recent or chronic-active infection. Anti-EA becomes undetectable weeks to months after onset. 32 Negative <20 Positive >19 33 Negative <20 Positive >19 34 Negative <0.91 Equivocal 0.91 - 1.09 Positive >1.09 Procedures Date CPT Code Description Status 11/26/2017 Colonoscopy Completed 01/05/2017 Mammogram Completed 01/02/2017 22956 Electrocardiogram Complete Completed 07/22/2016 45108 Pulse Oximetry Completed 02/29/2016 13871 Dxa Bone Density Study One Or More Sites Axial Skeleton Completed 02/29/2016 Bone Mineral Density Test Completed 12/31/2015 Mammogram Completed 02/16/2015 99886 Dxa Bone Density Study One Or More Sites Axial Skeleton Completed 12/27/2014 Mammogram Completed 10/20/2013 Mammogram Completed 10/11/2010 Mammogram Completed 07/05/2008 Mammogram Completed 06/25/2007 Mammogram Completed 02/01/2007 Colonoscopy Completed Encounters Type Date Location Provider CPT E/M Dx Office Visit 07/22/2016 1:30p [facility] Funmilayo Montoya, 03014 J01.00 Afsg-C Z23 Office Visit 09/18/2015 6:15p Main Office Brittny DamonMeche-C 62066 H81.10 Office Visit 08/01/2015 3:45p Main Office Meche Strauss-C 29972 S20.469A Z23 W57.xxxA Office Visit 03/13/2015 4:30p Main Office ZACH Neal 70515 794.5 733.90 300.4 790.21 Office Visit 02/16/2015 1:30p [facility] ZACH Neal 33232 300.4 300.02 V49.81 569.1 Office Visit 07/13/2013 7:10p Main Office Ziyad Zhang M.D. 41700 300.4 v04.81 Office Visit 10/29/2012 11:00a Main Office Denia Hwang, [facility] 86579 786.2 Office Visit 10/14/2012 5:45p Main Office Marielena Ramsay, [facility] 79873 488.82 786.2 Office Visit 06/08/2012 9:10a [facility] Ej Schilling M.D. 94662 300.02 300.4 Office Visit 10/16/2011 8:00p Main Office Ej Schilling M.D. 95611 382.9 Office Visit 06/28/2010 4:10p Main Office Ziyad Zhang M.D. 81884 380.22 Office Visit 07/23/2009 3:10p [facility] Jacque Vidal M.D. 06238 461.9 Office Visit 08/03/2008 3:20p Main Office Ej Schilling M.D. 61348 473.0 Office Visit 04/14/2008 11:15a Main Office Denia Hwang, [facility] 55420 300.4 Office Visit 09/22/2007 4:10p Main Office Ziyad Zhang M.D. 91293 300.4 Office Visit 05/27/2007 3:45p Main Office Meche Tomas-C 07129 780.52 Office Visit 12/25/2006 11:20a [place] [address] 461.9 Office Visit 10/17/2006 9:45a Main Office Brittny Jose Afnp-C 75829 461.9 Office Visit 08/19/2006 1:00p Main Office Funmilayo Montoya Afsg-C 06638 719.44 Office Visit 05/20/2006 4:30p Main Office Funmilayo Montoya Afsg-C 53632 782.1 Office Visit 12/16/2005 1:15p Main Office Mantillanp-C 90519 461.9 Office Visit 10/17/2005 1:15p [facility] Mantillanp-C 60891 380.10 Office Visit 08/13/2005 1:15p Main Office Meche Strauss-C 85953 920 Office Visit 02/12/2005 4:10p Main Office Zyiad Zhang M.D. 72759 780.79 Office Visit 01/27/2005 6:00p Main Office Brittny JoseMeliza 98929 780.79 Office Visit 11/28/2004 4:15p [facility] ZACH Aly 27059 473.9 Office Visit 05/08/2004 7:10p Main Office Ziyad Zhang M.D. 21597 300.00 719.46 Office Visit 11/08/2003 6:10p Main Office Ziyad Zhang M.D. 02339 681.11 Office Visit 01/13/2003 1:00p Main Office ZACH Aly 51018 465.9 Office Visit 08/31/2002 11:00a Main Office Ziyad Zhang M.D. 89355 386.11 Office Visit 08/23/2001 7:15p Main Office ZACH Aly 94504 Office Visit 07/28/2001 4:20p Main Office Ziyad Zhang M.D. 38445 Office Visit 07/21/2000 1:30p Main Office Brittny DamonMeliza camarena 17486 Office Visit 05/27/2000 8:10p Main Office Ziyad Zhang M.D. 51907 Plan of Care Future Appointment(s):08/04/2018 9:10 am - Ziyad Zhang M.D. at Main [facility]707/28/2018 - Ziyad Aponte, MDR10.13 Epigastric painNew Xrays:CT Abdomen & Pelvis W/ContrastAllComments:~B_~U_Medication Management~b_~u_ Patient Understands medications she's taking? Yes No Are there Barriers to Adherence? Yes No Has the patient been asked about herbal supplements and therapies, and OTC meds? Yes No
--- NOTE | 2018-07-29 22:15 | ED ---
Abdominal Pain/Female - HPI Summary HPI Summary: The pt is a 67 y/o female presenting to [facility] c/o abd pain for weeks worsened today. She saw PCP yesterday where labs returned negative but has a pending CT scan. She notes loss of appetite, fevers, abdominal distension and very dark stools (once every two hours) but denies nausea, vomiting, and melena. The pain rated 7/10 is aggravated by eating spicy food. She took OTC painkillers to no relief. - History of Current Complaint Chief Complaint: EDAbdPain Stated Complaint: ABD PAIN Time Seen by Provider: 07/29/18 22:08 Hx Obtained From: Patient Hx Last Menstrual Period: n/a Onset/Duration: Gradual Onset, Lasting Weeks, Still Present, Worse Since - Today Timing: Constant Severity Currently: Moderate Pain Intensity: 7 Pain Scale Used: 0-10 Numeric Location: Diffuse Aggravating Factor(s): Food Alleviating Factor(s): Nothing Associated Signs and Symptoms: Positive: Fever, Decreased Appetite. Negative: Blood in Stool, Nausea, Vomiting Allergies/Adverse Reactions: Allergies Allergy/AdvReac Type Severity Reaction Status Date / Time No Known Allergies Allergy Verified 07/29/18 20:31 PMH/Surg Hx/FS Hx/Imm Hx Previously Healthy: No Endocrine/Hematology History: Reports: Hx Thyroid Disease - Hypothyroidism Cardiovascular History: Denies: Hx Hypertension, Hx Pacemaker/ICD Respiratory History: Denies: Hx Asthma GI History: Reports: Other GI Disorders - Rectal prolapse History: Denies: Hx Dialysis, Hx Renal Disease Sensory History: Denies: Hx Hearing Aid Psychiatric History: Denies: Hx Panic Disorder - Cancer History Cancer Type, Location and Year: None reported Hx Chemotherapy: No Hx Radiation Therapy: No - Surgical History Surgery Procedure, Year, and Place: HYSTERECTOMY 2003; PROLAPSE REPAIR 2012; MENISCUS REPAIR LEFT KNEE 2014 Infectious Disease History: No Infectious Disease History: Denies: Traveled Outside the [place] in Last 30 Days - Family History Known Family History: Positive: Cardiac Disease - maternal - Social History Occupation: Retired Lives: With Family Alcohol Use: Weekly Alcohol Amount: 1 GLASS WINE EVERY OTHER DAY Substance Use Type: Reports: None Smoking Status (MU): Never Smoked Tobacco Review of Systems Constitutional: Other - Positive: Loss of appetite Positive: Fever Gastrointestinal: Negative - Melena , Other - Positive: Abdominal distension, dark stools Positive: Abdominal Pain. Negative: Vomiting, Nausea All Other Systems Reviewed And Are Negative: Yes Physical Exam - Summary Physical Exam Summary: GENERAL: Patient is a well developed and nourished F who is lying comfortable in the stretcher. Patient is not in any acute respiratory distress. HEAD AND FACE: Normocephalic EYES: PERRLA, EOMI x 2. EARS: Hearing grossly intact. MOUTH: Oropharynx within normal limits. NECK: Supple, trachea is midline, no adenopathy, no JVD, no carotid bruit. CHEST: Symmetric, no tenderness at palpation LUNGS: Clear to auscultation bilaterally. No wheezing or crackles. CVS: Regular rate and rhythm, S1 and S2 present, no murmurs or gallops appreciated. ABDOMEN: Soft, tender to palpation in the epigastric region. Bowel sounds are normal. No abdominal abnormal pulsations. EXTREMITIES: Full ROM in all major joints, no edema, no cyanosis or clubbing. NEURO: Alert and oriented x 3. No acute neurological deficits. Speech is normal and follows commands. SKIN: Dry and warm Triage Information Reviewed: Yes Vital Signs On Initial Exam: Initial Vitals Temp Pulse Resp BP Pulse Ox 97.7 F 92 16 109/77 96 07/29/18 20:28 07/29/18 20:28 07/29/18 20:28 07/29/18 20:28 07/29/18 20:28 Vital Signs Reviewed: Yes Diagnostics - Vital Signs Vital Signs Temp Pulse Resp BP Pulse Ox 07/29/18 22:09 79 126/79 98 07/29/18 22:08 79 98 07/29/18 20:28 97.7 F 92 16 109/77 96 - Laboratory Result Diagrams: 07/29/18 23:02 07/29/18 23:02 Lab Statement: Any lab studies that have been ordered have been reviewed, and results considered in the medical decision making process. - CT Abd/Pel CT CT Interpretation Completed By: Radiologist - IMPRESSION: 1. Constipation. No additional findings to correlate with patient's symptomatology. 2. Simple hepatic cysts. ACR White Paper guidelines (Julia et al. JACR 2010; 7(10):758 -15) suggest that no follow-up is necessary. The ED physician reviewed this radiology report. - EKG 22:57 Cardiac Rate: NL - 78 bpm EKG Rhythm: Sinus Rhythm Summary of EKG Findings: L atrial enlargement Abdominal Pain Fem Course/Dx - Course Course Of Treatment: A 67 year-old F presents to the ED with a CC of abd pain for weeks worsened today. She notes loss of appetite, fevers, abdominal distension and very dark stools (once every two hours) but denies nausea, vomiting, and melena. A physical exam revealed tenderness in the epigastric region. An EKG reveals L atrial enlargement. An ABD/Pel CT reveals constipation. In the ED course, pt was given N.s 0.9% 1000 ml IV, Metoclopramide 10 mg IV, Morphine 2mg IV and Pantoprazole 80 mg IV which improved the symptoms. Patient will be discharged with a final Dx of constipation. I discussed results with patient and she agrees with this plan. She is hemodynamically stable upon discharge. Strict return precautions given and she will otherwise follow up with her PCP. Allergies noted. - Diagnoses Provider Diagnoses: Constipation Discharge - Sign-Out/Discharge Documenting (check all that apply): Patient Departure - DC - Discharge Plan Condition: Stable Disposition: HOME Patient Education Materials: Constipation (DC) Referrals: Ziyad Zhang MD [Primary Care Provider] - Additional Instructions: Follow up with PCP in 1-3 days. Return to ED for any new or worsening symptoms - Billing Disposition and Condition Condition: STABLE Disposition: Home - Attestation Statements Document Initiated by Sariibe: Yes Documenting Scribe: Delfina Fung Provider For Whom Keri is Documenting (Include Credential): Dr. Satish Treadwell MD Scribe Attestation: Delfina Calixto , scribed for Dr. Satish Treadwell MD on 07/30/18 at 0520. Scribe Documentation Reviewed: Yes Provider Attestation: The documentation as recorded by the Delfina mcnulty accurately reflects the service I personally performed and the decisions made by me, Dr. Satish Treadwell MD
[2018-07-29] MEDS ORDERED: Pantoprazole IV* 40 MG IV ONE (22:46)
[2018-07-29] MEDS ORDERED: Metoclopramide IV* 5 MG/ML 2 ML VIAL IV ONE (22:46)
[2018-07-29] MEDS ORDERED: NS 0.9% 1000 ML* 1,000 ML IV ONE (22:46)
[2018-07-29] MEDS ORDERED: Morphine VIAL* 10 MG/ML 1 ML VIAL IV ONE (22:49)
[2018-07-29 23:09] LABS: ABS Basophils 0 10^3/ul (0-0.2); ABS Eosinophils 0.1 10^3/ul (0-0.6); ABS Lymphocytes 0.8 10^3/ul (1.0-4.8); ABS Monocytes 0.5 10^3/ul (0-0.8); ABS Neutrophils 2.7 10^3/ul (1.5-7.7); ABS Nucleated RBC 0 10^3/ul; Eosinophil % 2.7 % (0-6); Hematocrit 41 % (35-47); Hemoglobin 13.8 g/dl (12.0-16.0); Lymphocyte % 19.9 % (25-47); Mean Corpuscular HGB Conc 34 g/dl (31-36); Mean Corpuscular Hemoglobin 32 pg (27-31); Mean Corpuscular Volume 95 fL (80-97); Mean Platelet Volume 7.9 um3 (7.4-10.4); Nucleated Red Blood Cells % 0; Platelet Count 180 10^3/ul (150-450); Red Blood Count 4.32 10^6/ul (4.00-5.40); Red Cell Distribution Width 13 % (10.5-15); White Blood Count 4.2 10^3/ul (3.5-10.8)
[2018-07-29] MEDS ORDERED: Morphine INJ* 4 MG/ML 1 ML SYRINGE (NEW SYRINGE VERSION) ONE (23:15)
[2018-07-29 23:26] LABS: EGFR Non-African American 78.3 (>60)
[2018-07-29 23:37] LABS: INR 0.83 (0.77-1.02)
[2018-07-30] MEDS ORDERED: Iohexol 300* (CONTRAST) 10 ML SDV IV ONE (00:23)
--- NOTE | 2018-07-30 02:33 | RAD ---
EXAM: CT Abdomen and Pelvis With Intravenous Contrast EXAM DATE/TIME: 07/30/2018 1:49 AM CLINICAL HISTORY: 67 years old, female; Pain; Abdominal pain; Generalized; Additional info: Abdominal pain, distention for several weeks TECHNIQUE: Axial computed tomography images of the abdomen and pelvis with intravenous contrast. All CT scans at this facility use at least one of these dose optimization techniques: automated exposure control; mA and/or kV adjustment per patient size (includes targeted exams where dose is matched to clinical indication); or iterative reconstruction. Coronal and sagittal reformatted images were created and reviewed. CONTRAST: 72 ml of OMNI 300 administered intravenously. COMPARISON: No relevant prior studies available. FINDINGS: Lower thorax: No acute findings. ABDOMEN: Liver: Small hepatic cysts in segment AMBERLY measuring 1.2 cm in segment measuring 0.8 cm. No enhancing liver lesions. Normal liver size. Gallbladder and bile ducts: Normal. No calcified stones. No ductal dilation. Pancreas: Normal. No ductal dilation. Spleen: Normal. No splenomegaly. Adrenals: Normal. No mass. Kidneys and ureters: No renal solid cortical lesions, calculi, or pelvocaliectasis. Stomach and bowel: Incompletely distended grossly normal stomach. Normal caliber small bowel. No colonic masses or segmental wall thickening. Moderate colonic stool. Appendix: Normal caliber appendix without wall thickening or adjacent inflammation. PELVIS: Bladder: Thin-walled bladder with no focal nodularity, perivesicular stranding, or calcifications. Reproductive: Surgically absent uterus. Normal ovaries. ABDOMEN and PELVIS: Intraperitoneal space: Normal. No free air. No significant fluid collection. Bones/joints: The spine demonstrates mild degenerative changes at multiple levels. No fractures. No suspicious bone lesions. Soft tissues: Normal. No hernia. Vasculature: The aorta demonstrates mild atherosclerotic calcification. Patent IVC. Lymph nodes: Normal. No enlarged lymph nodes. IMPRESSION: 1. Constipation. No additional findings to correlate with patient's symptomatology. 2. Simple hepatic cysts. ACR White Paper guidelines (Alexandroland, et al. JACR 2010; 7(10):754-64) suggest that no follow-up is necessary. To contact [facility] with a general question: [facility] - [phone] For direct physician to physician contact: Physician Hotline - [phone] [facility] ([facility] Facility ID #[id number])
[2018-07-30] MEDS ORDERED: Magnesium CITRATE* 300 ML BTL PO ONE (02:47)
[2018-07-30 03:23] VITALS: BP 121/77
== END 2018-07-30 03:20 | disposition home or self-care (01) ==
LOC: ED 20:23
DX: K59.00 Constipation, unspecified (principal); K76.89 Other specified diseases of liver
CPT/HCPCS: 36415; 74177; 80053; 82140; 82272; 83605; 83690; 83735; 84484; 85025; 85610; 85730; 86140; 93005; 96374; 96375; 99283; A9270-GY; J2270; J2765; Q9967

== ENCOUNTER 2018-07-30 18:53 | Emergency (ER) | payer MEDICARE ==
--- NOTE | 2018-07-30 19:34 | ED ---
Abdominal Pain/Female - HPI Summary HPI Summary: This patient is a 67 year old F presenting to [facility] with a chief complaint of abd pain since several weeks ago. Patient was seen at [facility] by Dr. Saravia for similar symptoms 1 day ago but she reports her pain has worsened since she was discharged. Pts CT scan from 1 day ago showed constipation. The patient rates the pain 6/10 in severity. Symptoms aggravated by eating. Symptoms alleviated by nothing. Patient reports diarrhea, black stools, weakness, and dehydration. Patient denies oral intake besides water or vomiting. Pt has hx of rectal prolapse. Pt states she takes immodium. - History of Current Complaint Chief Complaint: EDAbdPain Stated Complaint: DIARRHEA Time Seen by Provider: 07/30/18 19:17 Hx Obtained From: Patient Hx Last Menstrual Period: n/a Onset/Duration: Gradual Onset, Lasting Weeks, Still Present, Worse Since - this morning Timing: Constant Severity Initially: Mild Severity Currently: Mild Pain Intensity: 6 Pain Scale Used: 0-10 Numeric Location: Diffuse Radiates: No Character: Cramping Aggravating Factor(s): Food Alleviating Factor(s): Nothing Associated Signs and Symptoms: Positive: Decreased Appetite, Diarrhea. Negative : Vomiting Allergies/Adverse Reactions: Allergies Allergy/AdvReac Type Severity Reaction Status Date / Time No Known Allergies Allergy Verified 07/29/18 20:31 PMH/Surg Hx/FS Hx/Imm Hx Endocrine/Hematology History: Reports: Hx Thyroid Disease - Hypothyroidism Denies: Hx Diabetes Cardiovascular History: Denies: Hx Hypertension, Hx Pacemaker/ICD Respiratory History: Denies: Hx Asthma GI History: Reports: Other GI Disorders - Rectal prolapse History: Denies: Hx Dialysis, Hx Renal Disease Sensory History: Denies: Hx Hearing Aid Psychiatric History: Denies: Hx Panic Disorder - Cancer History Cancer Type, Location and Year: None reported Hx Chemotherapy: No Hx Radiation Therapy: No - Surgical History Surgery Procedure, Year, and Place: HYSTERECTOMY 2003; PROLAPSE REPAIR 2012; MENISCUS REPAIR LEFT KNEE 2013 Infectious Disease History: No Infectious Disease History: Denies: Traveled Outside the [place] in Last 30 Days - Family History Known Family History: Positive: Cardiac Disease - maternal - Social History Alcohol Use: Weekly Alcohol Amount: 1 GLASS WINE EVERY OTHER DAY Substance Use Type: Reports: None Smoking Status (MU): Never Smoked Tobacco Review of Systems Negative: Fever Negative: Chest Pain Negative: Cough Positive: Abdominal Pain, Diarrhea - watery, black stools. Negative: Vomiting Positive: Weakness All Other Systems Reviewed And Are Negative: Yes Physical Exam - Summary Physical Exam Summary: GENERAL: Patient is a well-developed and nourished F who is lying comfortable in the stretcher. Patient is not in any acute respiratory distress. HEAD AND FACE: Normocephalic EYES: PERRLA, EOMI x 2. EARS: Hearing grossly intact. MOUTH: Oropharynx within normal limits. NECK: Supple, trachea is midline, no adenopathy, no JVD, no carotid bruit. CHEST: Symmetric, no tenderness at palpation LUNGS: Clear to auscultation bilaterally. No wheezing or crackles. CVS: Regular rate and rhythm, S1 and S2 present, no murmurs or gallops appreciated. ABDOMEN: Soft, non-tender. Bowel sounds are normal. No abdominal abnormal pulsations. EXTREMITIES: Full ROM in all major joints, no edema, no cyanosis or clubbing. NEURO: Alert and oriented x 3. No acute neurological deficits. Speech is normal and follows commands. SKIN: Dry and warm Triage Information Reviewed: Yes Vital Signs On Initial Exam: Initial Vitals Temp Pulse Resp BP Pulse Ox 97.7 F 97 18 114/79 98 07/30/18 19:00 07/30/18 19:00 07/30/18 19:00 07/30/18 19:00 07/30/18 19:00 Vital Signs Reviewed: Yes Diagnostics - Vital Signs Vital Signs Temp Pulse Resp BP Pulse Ox 07/30/18 19:00 97.7 F 97 18 114/79 98 - Laboratory Result Diagrams: 07/30/18 19:57 07/30/18 19:57 Lab Statement: Any lab studies that have been ordered have been reviewed, and results considered in the medical decision making process. Abdominal Pain Fem Course/Dx - Course Course Of Treatment: This patient is a 67 year old F presenting to [facility] with worsening abdominal pain and watery black stool worse with eating. Pt was seen and evaluated by Dr. Treadwell [address] day ago[address] Patients Abd CT from 1 day ago showed constipation. Workup is unremarkable including stool guaic. Discussed care with Dr. Sage, hospitalist, at 21:16 and she stated there was nothing tangible to admit the patient to [facility]. The patient will be discharged. I discussed results with patient and she reports feeling better. She is hemodynamically stable and safe for discharge. Strict return precautions given and she will otherwise follow up with her PCP and GI. - Diagnoses Provider Diagnoses: Abdominal pain - Provider Notifications Discussed Care Of Patient With: Katie Sage Time Discussed With Above Provider: 21:16 Instructed by Provider To: Other - Discussed care with Dr. Sage, hospitalist, at 21:16 and she stated there was nothing tangible to admit the patient to [facility]. Discharge - Sign-Out/Discharge Documenting (check all that apply): Patient Departure - discharge home - Discharge Plan Condition: Stable Disposition: HOME Patient Education Materials: Abdominal Pain (ED) Referrals: Ziyad Zhang MD [Primary Care Provider] - Jonathon Perez MD [Medical Doctor] - 1 Day Additional Instructions: Follow up with Dr. Perez, chain maker loom control in 1-3 days. Return to the emergency department with any new or worsening symptoms. - Billing Disposition and Condition Condition: STABLE Disposition: Home - Attestation Statements Document Initiated by Scribe: Yes Documenting Scribe: Marielena Felder Provider For Whom Henrrye is Documenting (Include Credential): Satish Treadwell MD Scribe Attestation: Marielena Calixto, scribed for Satish Treadwell MD on 07/31/18 at [id number]. Scribe Documentation Reviewed: Yes Provider Attestation: The documentation as recorded by the scribeMarielena accurately reflects the service I personally performed and the decisions made by , Anisha Treadwell MD
[2018-07-30] MEDS ORDERED: NS 0.9% 1000 ML* 1,000 ML IV ONE (19:36)
[2018-07-30] MEDS ORDERED: Pantoprazole IV* 40 MG IV ONE (19:37)
[2018-07-30] MEDS ORDERED: Metoclopramide IV* 5 MG/ML 2 ML VIAL IV ONE (19:37)
[2018-07-30 20:06] LABS: ABS Basophils 0 10^3/ul (0-0.2); ABS Eosinophils 0.1 10^3/ul (0-0.6); ABS Monocytes 0.6 10^3/ul (0-0.8); ABS Neutrophils 2.3 10^3/ul (1.5-7.7); ABS Nucleated RBC 0 10^3/ul; Eosinophil % 1.7 % (0-6); Hematocrit 41 % (35-47); Hemoglobin 13.8 g/dl (12.0-16.0); Lymphocyte % 23.8 % (25-47); Mean Corpuscular HGB Conc 34 g/dl (31-36); Mean Corpuscular Hemoglobin 32 pg (27-31); Mean Corpuscular Volume 94 fL (80-97); Mean Platelet Volume 8.2 fL (7.4-10.4); Nucleated Red Blood Cells % 0.2; Platelet Count 183 10^3/ul (150-450); Red Blood Count 4.33 10^6/ul (4.00-5.40); Red Cell Distribution Width 13 % (10.5-15)
[2018-07-30 20:19] LABS: INR 0.84 (0.77-1.02)
[2018-07-30 20:25] LABS: EGFR Non-African American 83.5 (>60)
[2018-07-30 22:38] LABS: Urine Appearance Clear; Urine Blood Negative (Negative); Urine Color Straw; Urine Ketones 1+ (Negative); Urine Protein Negative (Negative); Urine Urobilinogen Negative (Negative)
[2018-07-30 23:23] VITALS: BP 133/74
== END 2018-07-30 23:20 | disposition home or self-care (01) ==
LOC: ED 18:53
DX: R10.9 Unspecified abdominal pain (principal); R19.7 Diarrhea, unspecified; R53.1 Weakness
CPT/HCPCS: 36415; 80053; 81003; 82272; 85025; 85610; 85730; 86900; 86901; 87045; 87046; 87077; 87493; 87899; 96361; 96374; 96375; 99283; J2765

== ENCOUNTER 2019-06-05 14:43 | Emergency (ER) | payer MEDICARE ==
[2019-06-05 15:48] VITALS: BP 150/89
--- NOTE | 2019-06-05 16:10 | UC ---
Dizzy HPI HPI Summary: pT slipped and fell on an object yesterday and suddenly felt dizzy and 'not herself'. she did not hit her head and has had vertigo in the past but feels this is very different. she feels suddenly fatigued since yesterday as well. does not have high blood pressure or take meds. - History Of Current Complaint Chief Complaint: UCDizziness Stated Complaint: FALL INJURY YESTERDAY, FEELS FOGGY Time Seen by Provider: 06/05/19 16:01 Hx Obtained From: Patient Hx Last Menstrual Period: hysterectomy approx 1999 Pain Intensity: 0 Character: Dizzy, Unable To Describe Aggravating Factor(s): Nothing Alleviating Factor(s): Nothing - Allergies/Home Medications Allergies/Adverse Reactions: Allergies Allergy/AdvReac Type Severity Reaction Status Date / Time No Known Allergies Allergy Verified 06/05/19 15:44 Home Medications: Home Medications Aspirin TAB* [Aspirin 325 MG TAB*] 2 tab PO BID PRN 06/05/19 [History Confirmed 06/05/19] Ibuprofen TAB* [Motrin TAB* 400 MG] 400 mg PO Q6H PRN 06/05/19 [History Confirmed 06/05/19] PMH/Surg Hx/FS Hx/Imm Hx Previously Healthy: Yes Endocrine History: Thyroid Disease Neurological History: Other - hx of vertigo - Surgical History Surgical History: Yes Surgery Procedure, Year, and Place: HYSTERECTOMY 2003;. PROLAPSE REPAIR 2012;. MENISCUS REPAIR LEFT KNEE 2013; - Family History Known Family History: Positive: Cardiac Disease - maternal - Social History Alcohol Use: None Alcohol Amount: 1 GLASS WINE EVERY OTHER DAY Substance Use Type: None Smoking Status (MU): Never Smoked Tobacco Review of Systems All Other Systems Reviewed And Are Negative: Yes Constitutional: Positive: Fatigue. Negative: Fever, Chills Respiratory: Negative: Shortness Of Breath Cardiovascular: Negative: Palpitations Motor: Negative: Weakness Neurological: Positive: Other - FOGGINESS AND NOT FEELING HERSELF.. Negative: Headache, Weakness, Paresthesia Psychological: Positive: Negative Physical Exam Triage Information Reviewed: Yes Appearance: Well-Appearing, Thin Vital Signs: Initial Vital Signs Temp 100 F 06/05/19 15:44 Pulse 75 06/05/19 15:44 Resp 16 06/05/19 15:44 BP 150/89 06/05/19 15:44 Pulse Ox 97 06/05/19 15:44 Vital Signs Reviewed: Yes Eyes: Positive: Other: - PERRLA Neck: Positive: Supple Respiratory Exam: Normal Cardiovascular Exam: Normal Cardiovascular: Positive: Other: - NO CAROTID BRUITS Musculoskeletal: Positive: Strength Intact - able to get on/off exam table w/ no issue. Neurological: Positive: Alert, Fatigued, Other: - no facial drooping, CN II-XII , gait normal Psychological: Positive: Age Appropriate Behavior Skin: Negative: Rashes Dizzy Course/Dx - Course Course Of Treatment: Pt coming in today with vague symptoms of dizziness, fogginess, fatigue and ' not feeling herself'. Her age puts her at risk for stroke and this will need to be ruled out. I have recommended going to ED via ambulance but pt. has declined even after discussing the risks of waiting or driving herself. She has a hx of vertigo but reports this feeling very different. Her injury did not involve her hitting her head. She is hypertensive, no tachycardia and temp slightly elevated. She is stable. - Differential Dx/Diagnosis Differential Diagnosis/HQI/PQRI: Benign Paroxysmal Positional Vertigo, CVA, Transient Ischemic Attack, Other Provider Diagnosis: Dizziness Discharge ED - Sign-Out/Discharge Documenting (check all that apply): Patient Departure All imaging exams completed and their final reports reviewed: No Studies - Discharge Plan Condition: Stable Disposition: TRANS HIGHER LVL OF CARE FAC Patient Education Materials: Dizziness (ED) Referrals: Ziyad Zhang MD [Primary Care Provider] - Additional Instructions: Given your vague symptoms and your age we would like to rule out stroke but we do not have CT here on site. I strongly recommend taking the ambulance to the ER. - Billing Disposition and Condition Condition: STABLE Disposition: Trans Higher Lvl of Care Fac
== END 2019-06-05 16:46 | disposition short-term general hospital (02) ==
LOC: UCEAST 14:43
DX: R42 Dizziness and giddiness (principal); R53.83 Other fatigue; Z79.82 Long term (current) use of aspirin
CPT/HCPCS: 99213; G0463

== ENCOUNTER 2019-06-05 17:05 | Emergency (ER) | payer MEDICARE ==
--- NOTE | 2019-06-05 17:23 | ED ---
Dizziness - HPI Summary HPI Summary: Patient complains of fall last night and then waking up this morning dizzy, lightheaded with headache which persisted all day. Patient denies known head injury with fall, states she fell down 3 stairs. Denies any other pain, injury or symptoms. Went to urgent care today and was sent to the ED for further evaluation. Patient is ambulatory without imbalance. Denies vision change, N/V , LOC, neck pain, dental pain, unilateral deficit, fever, cough, sore throat, CP , SOB, N/V/D, abdominal pain, change in urine, change in BM. Medical history is hypothyroid, - History Of Current Complaint Stated Complaint: DIZZINESS PER EMS Hx Obtained From: Patient Onset/Duration: Still Present Timing: Constant Severity Initially: Moderate Severity Currently: Moderate Character: Head Spinning, Lightheaded Aggravating Factor(s): Nothing Alleviating Factor(s): Nothing Associated Signs And Symptoms: Positive: Negative - Allergies/Home Medications Allergies/Adverse Reactions: Allergies Allergy/AdvReac Type Severity Reaction Status Date / Time No Known Allergies Allergy Verified 06/05/19 15:44 PMH/Surg Hx/FS Hx/Imm Hx Endocrine/Hematology History: Reports: Hx Thyroid Disease Denies: Hx Diabetes Cardiovascular History: Denies: Hx Hypertension, Hx Pacemaker/ICD Respiratory History: Denies: Hx Asthma GI History: Reports: Other GI Disorders - Rectal prolapse History: Denies: Hx Dialysis, Hx Renal Disease Sensory History: Denies: Hx Hearing Aid Opthamlomology History: Denies: Hx Legally Blind EENT History: Denies: Hx Deafness Neurological History: Denies: Hx Dementia Psychiatric History: Denies: Hx Panic Disorder - Cancer History Cancer Type, Location and Year: None reported Hx Chemotherapy: No Hx Radiation Therapy: No - Surgical History Surgery Procedure, Year, and Place: HYSTERECTOMY 2003;. PROLAPSE REPAIR 2012;. MENISCUS REPAIR LEFT KNEE 2013; Infectious Disease History: No Infectious Disease History: Denies: Traveled Outside the [place] in Last 30 Days - Family History Known Family History: Positive: Cardiac Disease - maternal - Social History Alcohol Use: None Alcohol Amount: 1 GLASS WINE EVERY OTHER DAY Substance Use Type: Reports: None Smoking Status (MU): Never Smoked Tobacco Review of Systems Constitutional: Negative Eyes: Negative ENT: Negative Cardiovascular: Negative Respiratory: Negative Gastrointestinal: Negative Genitourinary: Negative Musculoskeletal: Negative Skin: Negative Positive: Headache Psychological: Normal All Other Systems Reviewed And Are Negative: Yes Physical Exam - Summary Physical Exam Summary: Neuro exam normal. Patient ambulates without problem. Triage Information Reviewed: Yes Vital Signs On Initial Exam: Initial Vitals Temp Pulse Resp BP Pulse Ox 97.4 F 69 16 148/94 97 06/05/19 17:13 06/05/19 17:13 06/05/19 17:13 06/05/19 17:13 06/05/19 17:13 Vital Signs Reviewed: Yes Appearance: Positive: Well-Appearing Skin: Positive: Warm Head/Face: Positive: Normal Head/Face Inspection Eyes: Positive: Normal ENT: Positive: Normal ENT inspection Dental: Negative: Dental Fracture @, Bleeding Neck: Positive: Supple Respiratory/Lung Sounds: Positive: Clear to Auscultation Cardiovascular: Positive: Normal Abdomen Description: Positive: Nontender Musculoskeletal: Positive: Normal Neurological: Positive: Normal Psychiatric: Positive: Normal AVPU Assessment: Alert - William Coma Scale Best Eye Response: 4 - Spontaneous Best Motor Response: 6 - Obeys Commands Best Verbal Response: 5 - Oriented Coma Scale Total: 15 Diagnostics - Vital Signs Vital Signs Temp Pulse Resp BP Pulse Ox 06/05/19 17:13 97.4 F 69 16 148/94 97 - Laboratory Result Diagrams: 06/05/19 17:35 06/05/19 17:35 Lab Statement: Any lab studies that have been ordered have been reviewed, and results considered in the medical decision making process. Dizzy Course/Dx - Course Course Of Treatment: Patient complains of fall last night and then waking up this morning dizzy, lightheaded with headache which persisted all day. Patient denies known head injury with fall, states she fell down 3 stairs. Denies any other pain, injury or symptoms. Went to urgent care today and was sent to the ED for further evaluation. Patient is ambulatory without imbalance. Denies vision change, N/V, LOC, neck pain, dental pain, unilateral deficit, fever, cough, sore throat, CP, SOB, N/V/D, abdominal pain, change in urine, change in BM. Medical history is hypothyroid. Vital signs within normal limits. Labs unremarkable. CT brain negative. - Diagnoses Provider Diagnoses: Dizziness Discharge ED - Sign-Out/Discharge Documenting (check all that apply): Patient Departure Patient Received Moderate/Deep Sedation with Procedure: No - Discharge Plan Condition: Stable Disposition: HOME Prescriptions: Meclizine HCl [Dramamine Less Drowsy] 25 mg PO TID 5 Days #15 tablet Patient Education Materials: Dizziness (ED) Referrals: Ziyad Zhang MD [Primary Care Provider] - Additional Instructions: Take meclizine as directed. Drink plenty of fluids. Follow-up with primary care. Return to the ED for any new or worsening symptoms. - Billing Disposition and Condition Condition: STABLE Disposition: Home - Attestation Statements Provider Attestation: I was available for consult. This patient was seen by the [facility]. The patient was not presented to, seen by, or examined by me. Junior Barrientos MD
[2019-06-05 17:41] LABS: ABS Eosinophils 0.3 10^3/ul (0-0.6); ABS Lymphocytes 1.6 10^3/ul (1.0-4.8); ABS Monocytes 0.6 10^3/ul (0-0.8); ABS Neutrophils 3.4 10^3/ul (1.5-7.7); Eosinophil % 5.8 %; Hematocrit 40 % (35-47); Hemoglobin 13.5 g/dL (12.0-16.0); Lymphocyte % 27.2 %; Mean Corpuscular HGB Conc 34 g/dL (31-36); Mean Corpuscular Hemoglobin 32 pg (27-31); Mean Corpuscular Volume 94 fL (80-97); Mean Platelet Volume 8.1 fL (7.4-10.4); Platelet Count 233 10^3/uL (150-450); Red Blood Count 4.19 10^6 /uL (3.70-4.87); Red Cell Distribution Width 13 % (10-15)
[2019-06-05 17:57] LABS: Urine Appearance Clear; Urine Bilirubin Negative (Negative); Urine Blood Negative (Negative); Urine Color Straw; Urine Glucose Negative (Negative); Urine Ketones Negative (Negative); Urine Nitrite Negative (Negative); Urine Protein Negative (Negative); Urine Specific Gravity 1.005 (1.010-1.030); Urine Urobilinogen Negative (Negative)
[2019-06-05 17:58] LABS: ALT 15 U/L (7-52); AST 18 U/L (13-39); Albumin 3.9 g/dL (3.2-5.2); Albumin/Globulin Ratio 1.7 (1-3); Alkaline Phosphatase 62 U/L (34-104); Anion Gap 5 mmol/L (2-11); BUN/Creatinine Ratio 21.8 (8-20); Blood Urea Nitrogen 17 mg/dL (6-24); C Reactive Protein < 1.00 mg/L (<8.01); CO2 Carbon Dioxide 28 mmol/L (22-32); Chloride 107 mmol/L (101-111); EGFR African American 88.9 (>60); EGFR Non-African American 73.4 (>60); Globulin 2.3 g/dL (2-4); Glucose 92 mg/dL (70-100); Potassium 3.9 mmol/L (3.5-5.0); Sodium 140 mmol/L (135-145); Total Protein 6.2 g/dL (6.4-8.9)
[2019-06-05 19:20] VITALS: BP 147/94
== END 2019-06-05 19:10 | disposition home or self-care (01) ==
LOC: ED 17:05
DX: R42 Dizziness and giddiness (principal); R51 Headache; E03.9 Hypothyroidism, unspecified
CPT/HCPCS: 36415; 70450; 80053; 81003; 85025; 86140; 99283

== ENCOUNTER 2019-10-26 12:18 | Emergency (ER) | payer MEDICARE ==
[2019-10-26] MEDS ORDERED: LORazepam TAB(*) 1 MG PO ONE (12:59)
[2019-10-26 13:21] LABS: ABS Eosinophils 0.1 10^3/ul (0-0.6); ABS Lymphocytes 1.1 10^3/ul (1.0-4.8); ABS Monocytes 0.5 10^3/ul (0-0.8); ABS Neutrophils 3.4 10^3/ul (1.5-7.7); Eosinophil % 1.9 %; Hematocrit 40 % (35-47); Hemoglobin 13.8 g/dL (12.0-16.0); Lymphocyte % 20.8 %; Mean Corpuscular HGB Conc 34 g/dL (31-36); Mean Corpuscular Hemoglobin 32 pg (27-31); Mean Corpuscular Volume 95 fL (80-97); Mean Platelet Volume 8.8 fL (7.4-10.4); Nucleated Red Blood Cells % 0.1; Platelet Count 236 10^3/uL (150-450); Red Blood Count 4.26 10^6 /uL (3.70-4.87); Red Cell Distribution Width 13 % (10-15); White Blood Count 5.1 10^3/uL (3.5-10.8)
[2019-10-26 13:29] LABS: Albumin 4.2 g/dL (3.2-5.2); Albumin/Globulin Ratio 1.6 (1-3); BUN/Creatinine Ratio 10.3 (8-20); Calcium 9.5 mg/dL (8.6-10.3); EGFR African American 88.6 (>60); EGFR Non-African American 73.2 (>60); Globulin 2.7 g/dL (2-4); Potassium 4.4 mmol/L (3.5-5.0); Total Bilirubin 0.3 mg/dL (0.2-1.0); Total Protein 6.9 g/dL (6.4-8.9)
[2019-10-26 13:45] LABS: TSH (Thyroid Stimulating Horm) 5.92 mcIU/mL (0.34-5.60)
[2019-10-26 13:47] LABS: Free T4 0.82 ng/dL (0.61-1.12)
--- NOTE | 2019-10-26 14:53 | ED ---
Psychiatric Complaint - HPI Summary HPI Summary: This patient is a 69-year-old female with a history of anxiety and SIBO presenting to the ED with insomnia for 2 and half weeks. Patient states she has not slept at all over the course of 2 and half weeks. She has been seen by her primary for this. She states her cortisol and thyroid levels have been good with no abnormalities. Other labs obtained which are normal. She states she was given trazodone for sleep which did not help. Last night she took Ambien for sleep, and states this medication worsened her symptoms. She states she used to be on anxiety medications as well as Lexapro, however, they gave her more anxiety, so she stopped. She does not feel this is anxiety driven. She does see a therapist regularly. She also sees a GI specialist. He continues to practice feel that meditate and feels that this would improve her symptoms, however she continues to have symptoms of insomnia in which she describes as like "getting a shot of methamphetamine." Patient is tearful on arrival. - History Of Current Complaint Chief Complaint: EDGeneral Time Seen by Provider: 10/26/19 12:39 Hx Obtained From: Patient Hx Last Menstrual Period: hysterectomy approx 1999 ?: No Onset/Duration: Sudden Onset Timing: Weeks Severity Initially: Severe Severity Currently: Severe Character: Anxious, Frustrated Aggravating Factor(s): Nothing Alleviating Factor(s): Nothing Associated Signs And Symptoms: Positive: Sleep Disturbance, Appetite Change Related History: Positive For: Prior Psychiatric Issues - anxiety and depression - Risk Factor(s) Completed Suicide Risk Factors: Negative - Allergies/Home Medications Allergies/Adverse Reactions: Allergies Allergy/AdvReac Type Severity Reaction Status Date / Time No Known Allergies Allergy Verified 10/26/19 12:27 PMH/Surg Hx/FS Hx/Imm Hx Previously Healthy: Yes Endocrine/Hematology History: Reports: Hx Thyroid Disease Denies: Hx Diabetes Cardiovascular History: Denies: Hx Hypertension, Hx Pacemaker/ICD Respiratory History: Denies: Hx Asthma GI History: Reports: Other GI Disorders - Rectal prolapse History: Denies: Hx Dialysis, Hx Renal Disease Sensory History: Denies: Hx Legally Blind, Hx Deafness, Hx Hearing Aid Opthamlomology History: Denies: Hx Legally Blind Neurological History: Denies: Hx Dementia Psychiatric History: Denies: Hx Panic Disorder - Cancer History Cancer Type, Location and Year: None reported Hx Chemotherapy: No Hx Radiation Therapy: No - Surgical History Surgery Procedure, Year, and Place: HYSTERECTOMY 2003;. RECTAL PROLAPSE REPAIR 2012;. MENISCUS REPAIR LEFT KNEE 2013; - Immunization History Hx Pertussis Vaccination: No Immunizations Up to Date: Yes Infectious Disease History: No Infectious Disease History: Denies: Traveled Outside the [place] in Last 30 Days - Family History Known Family History: Positive: Cardiac Disease - maternal - Social History Occupation: Unemployed Lives: Alone Alcohol Use: None Alcohol Amount: 1 GLASS WINE EVERY OTHER DAY Hx Substance Use: No Substance Use Type: Reports: None Hx Tobacco Use: No Smoking Status (MU): Never Smoked Tobacco Review of Systems Negative: Fever, Chills, Fatigue, Skin Diaphoresis Negative: Palpitations, Chest Pain Negative: Shortness Of Breath, Cough Genitourinary: Negative Positive: no symptoms reported, see HPI Negative: Arthralgia, Myalgia Neurological: Negative Positive: Anxious. Negative: Depressed All Other Systems Reviewed And Are Negative: Yes Physical Exam Triage Information Reviewed: Yes Vital Signs On Initial Exam: Initial Vitals Temp Pulse Resp BP Pulse Ox 98.4 F 89 18 143/115 98 10/26/19 12:19 10/26/19 12:19 10/26/19 12:19 10/26/19 12:19 10/26/19 12:19 Vital Signs Reviewed: Yes Appearance: Positive: Thin Skin: Positive: Skin Color Reflects Adequate Perfusion Head/Face: Positive: Normal Head/Face Inspection Eyes: Positive: EOMI, Conjunctiva Clear Neck: Positive: Supple, No Lymphadenopathy Respiratory/Lung Sounds: Positive: Clear to Auscultation, Breath Sounds Present Cardiovascular: Positive: RRR, Pulses are Symmetrical in both Upper and Lower Extremities Musculoskeletal: Positive: Strength/ROM Intact Neurological: Positive: Speech Normal Psychiatric: Positive: Anxious AVPU Assessment: Alert - William Coma Scale Best Eye Response: 4 - Spontaneous Best Motor Response: 6 - Obeys Commands Best Verbal Response: 5 - Oriented Coma Scale Total: 15 Procedures - Sedation Patient Received Moderate/Deep Sedation with Procedure: No Diagnostics - Vital Signs Vital Signs Temp Pulse Resp BP Pulse Ox 10/26/19 13:16 17 10/26/19 13:00 79 95 10/26/19 12:57 80 114/73 98 10/26/19 12:56 83 98 10/26/19 12:19 98.4 F 89 18 143/115 98 - Laboratory Lab Results: Lab Results 10/26/19 10/26/19 Range/Units 12:49 12:49 WBC 5.1 (3.5-10.8) 10^3/uL RBC 4.26 (3.70-4.87) 10^6 /uL Hgb 13.8 (12.0-16.0) g/dL Hct 40 (35-47) % MCV 95 (80-97) fL MCH 32 H (27-31) pg MCHC 34 (31-36) g/dL RDW 13 (10-15) % Plt Count 236 (150-450) 10^3/uL MPV 8.8 (7.4-10.4) fL Neut % (Auto) 67.0 % Lymph % (Auto) 20.8 % [place] % (Auto) 9.4 % Eos % (Auto) 1.9 % Baso % (Auto) 0.9 % Absolute Neuts (auto) 3.4 (1.5-7.7) 10^3/ul Absolute Lymphs (auto) 1.1 (1.0-4.8) 10^3/ul Absolute Monos (auto) 0.5 (0-0.8) 10^3/ul Absolute Eos (auto) 0.1 (0-0.6) 10^3/ul Absolute Basos (auto) 0.0 (0-0.2) 10^3/ul Absolute Nucleated RBC 0.0 10^3/ul Nucleated RBC % 0.1 Sodium 140 (135-145) mmol/L Potassium 4.4 (3.5-5.0) mmol/L Chloride 105 (101-111) mmol/L Carbon Dioxide 31 (22-32) mmol/L Anion Gap 4 (2-11) mmol/L BUN 8 (6-24) mg/dL Creatinine 0.78 (0.51-0.95) mg/dL Est GFR ( Amer) 88.6 (>60) Est GFR (Non-Af Amer) 73.2 (>60) BUN/Creatinine Ratio 10.3 (8-20) Glucose 119 H (70-100) mg/dL Calcium 9.5 (8.6-10.3) mg/dL Total Bilirubin 0.30 (0.2-1.0) mg/dL AST 18 (13-39) U/L ALT 14 (7-52) U/L Alkaline Phosphatase 67 (34-104) U/L Total Protein 6.9 (6.4-8.9) g/dL Albumin 4.2 (3.2-5.2) g/dL Globulin 2.7 (2-4) g/dL Albumin/Globulin Ratio 1.6 (1-3) TSH 5.92 H (0.34-5.60) mcIU/mL Free T4 0.82 (0.61-1.12) ng/dL Result Diagrams: 10/26/19 12:49 10/26/19 12:49 Lab Statement: Any lab studies that have been ordered have been reviewed, and results considered in the medical decision making process. Course/Dx - Course Course Of Treatment: This patient is evaluated for insomnia. This appears to be anxiety driven, however labs are obtained. TSH and T4 okay. She states she has not taken her levothyroxin lately as she has had diarrhea. She has diarrhea persistently due to her SIBO. She endorses decreased by mouth intake. She has been seen by her PCP who has worked her up for this insomnia. She continues to meditate and do yoga, with no improvement. She was given 2 mg Ativan and she states this did nothing for her. She did not relax while in the ED and she continues to state she feels this surges of "a drug" throughout her body. Discussed with Dr. Zhang who also feels this is related to her anxiety. She will be given 50mg seroquil to take daily x 7 days. She will f/u with Dr. Zhang within this timeframe for a re-eval. Encouraged close follow up with her counselor as well. - Differential Dx/Clinical Impression Differential Diagnosis/HQI/PQRI: Positive: Anxiety Provider Diagnosis: Insomnia, Anxiety - Physician Notifications Discussed Care Of Patient With: Ziyad Zhang - pt will follow up with his office Discharge ED - Sign-Out/Discharge Documenting (check all that apply): Patient Departure - Discharge Plan Condition: Stable Disposition: HOME Prescriptions: QUEtiapine TAB* [Seroquel 25 MG TAB*] 50 mg PO DAILY #7 tab Patient Education Materials: Insomnia (ED) Referrals: Ziyad Zhang MD [Primary Care Provider] - 1 Week Additional Instructions: Please continue your care and medications through Dr. Zhang's office Seroquil 50mg once daily x 7 days, you may need an increase in this medication after 7 days - however, I want you to talk with Dr. Zhang within this time frame Please continue to see your therapist - Billing Disposition and Condition Condition: STABLE Disposition: Home - Attestation Statements Provider Attestation: I was available for consultation for this patient. I did not evaluate the patient or participate in any medical decision making or disposition decisions unless I am specifically named in the chart as having consulted on the patient. If I have consulted on the patient, please see my own ED note on the patient encounter. Deangelo Lang MD
[2019-10-26 15:02] VITALS: BP 133/84
== END 2019-10-26 14:50 | disposition home or self-care (01) ==
LOC: ED 12:18
DX: G47.00 Insomnia, unspecified (principal); F41.9 Anxiety disorder, unspecified; E07.9 Disorder of thyroid, unspecified; Z90.710 Acquired absence of both cervix and uterus
CPT/HCPCS: 36415; 80053; 84439; 84443; 85025; 99282; A9270-GY

== ENCOUNTER 2019-11-20 04:41 | Emergency (ER) | payer MEDICARE ==
--- NOTE | 2019-11-20 04:57 | ED ---
Complex/Multi-Sys Presentation - HPI Summary HPI Summary: This patient is a 69 year old female presenting to [facility] with a chief complaint of concern over medication reaction after being recently diagnosed with shingles and anxiety. She states that she took Gabapentin and had Ativan prior to that. She states she felt like her heart was racing after. She states she feels like she is about pass out but cannot, because she is wired. She denies CP and SOB. Patient has not slept this evening. She rates her shingles pain 5/10 in severity. - History Of Current Complaint Chief Complaint: EDGeneral Time Seen by Provider: 11/20/19 04:53 Hx Obtained From: Patient Onset/Duration: Lasting Hours - Allergies/Home Medications Allergies/Adverse Reactions: Allergies Allergy/AdvReac Type Severity Reaction Status Date / Time No Known Allergies Allergy Verified 11/20/19 04:43 Home Medications: Home Medications Levothyroxine Sodium [Synthroid] 50 mcg PO DAILY 06/05/17 [History Confirmed ] Ibuprofen TAB* [Motrin TAB* 400 MG] 400 mg PO Q6H PRN 06/05/19 [History Confirmed 11/20/19] Gabapentin [Neurontin] 100 mg PO BID 11/20/19 [History Confirmed 11/20/19] LORazepam [Ativan 1 MG TAB] 1 - 2 mg PO BEDTIME PRN 11/20/19 [History Confirmed 11/20/19] Valacyclovir HCl [Valacyclovir] 1,000 mg PO TID 11/20/19 [History Confirmed ] PMH/Surg Hx/FS Hx/Imm Hx Endocrine/Hematology History: Reports: Hx Thyroid Disease Denies: Hx Diabetes Cardiovascular History: Denies: Hx Hypertension, Hx Pacemaker/ICD Respiratory History: Denies: Hx Asthma GI History: Reports: Other GI Disorders - Rectal prolapse History: Denies: Hx Dialysis, Hx Renal Disease Sensory History: Denies: Hx Legally Blind, Hx Deafness, Hx Hearing Aid Opthamlomology History: Denies: Hx Legally Blind Neurological History: Denies: Hx Dementia Psychiatric History: Denies: Hx Panic Disorder - Cancer History Cancer Type, Location and Year: None reported Hx Chemotherapy: No Hx Radiation Therapy: No - Surgical History Surgery Procedure, Year, and Place: HYSTERECTOMY 2003;. RECTAL PROLAPSE REPAIR 2012;. MENISCUS REPAIR LEFT KNEE 2014; Infectious Disease History: No Infectious Disease History: Denies: Traveled Outside the [place] in Last 30 Days - Family History Known Family History: Positive: Cardiac Disease - maternal - Social History Alcohol Use: None Alcohol Amount: 1 GLASS WINE EVERY OTHER DAY Hx Substance Use: No Substance Use Type: Reports: None Hx Tobacco Use: No Smoking Status (MU): Never Smoked Tobacco Review of Systems Positive: Other - Insomnia Positive: Anxious All Other Systems Reviewed And Are Negative: Yes Physical Exam - Summary Physical Exam Summary: Appearance: Well-appearing, Well-nourished, lying in bed comfortable Skin: Warm, dry, no obvious rash Eyes: sclera anicteric, no conjunctival pallor ENT: mucous membranes moist Neck: deferred Respiratory: No signs of respiratory distress Cardiovascular: Appears well perfused, pulses are nml Abdomen: deferred Musculoskeletal: Moving all 4 extremities without obvious discomfort Neurological: Awake and alert, mentation is normal, speech is fluent and appropriate Psychiatric: affect is normal, does not appear anxious or depressed Triage Information Reviewed: Yes Vital Signs On Initial Exam: Initial Vitals Temp Pulse Resp BP Pulse Ox 96.9 F 97 18 158/108 98 11/20/19 04:43 11/20/19 04:43 11/20/19 04:43 11/20/19 04:43 11/20/19 04:43 Vital Signs Reviewed: Yes Procedures - Sedation Patient Received Moderate/Deep Sedation with Procedure: No Diagnostics - Vital Signs Vital Signs Temp Pulse Resp BP Pulse Ox 11/20/19 04:43 96.9 F 97 18 158/108 98 - Laboratory Lab Statement: Any lab studies that have been ordered have been reviewed, and results considered in the medical decision making process. Complex Multi-Symp Course/Dx Course Of Treatment: This patient is a 69 year old female presenting to [facility] with a chief complaint of concern over medication reaction after being recently diagnosed with shingles and anxiety. The patient's medications wore off, anxiety symptoms resolved and she was ready to go home. Plan for discharge was discussed with the patient and she understands and agrees with this plan. - Diagnoses Provider Diagnoses: Adverse drug reaction Discharge ED - Sign-Out/Discharge Documenting (check all that apply): Patient Departure - Discharge - Discharge Plan Condition: Stable Disposition: HOME Patient Education Materials: Adverse Drug Reaction (ED) Referrals: Ziyad Zhang MD [Primary Care Provider] - 2 Days - Billing Disposition and Condition Condition: STABLE Disposition: Home - Attestation Statements Document Initiated by Keri: Yes Documenting Scribe: Alex Rodrigues Provider For Whom Keri is Documenting (Include Credential): Maninder Zaman MD Scribrobert Attestation: Alex Calixto, scribed for Maninder Zaman MD on 11/20/19 at 2055. Scribe Documentation Reviewed: Yes Provider Attestation: The documentation as recorded by the Alex mcnulty accurately reflects the service I personally performed and the decisions made by me, Maninder Zaman MD Status of Scribe Document: Viewed
--- OUTSIDE RECORDS SUMMARY | 2019-11-20 05:07 | XMS REPORT | Continuity of Care Document ---
:1950 External Reference #:[id number] Author Name Carlee Baird NP Address [address] [place] [address] Care Team Providers Name Role Phone Jonathon Perez MD - Gastroenterology Care Team Information Compound Specialist Jess Heredia MD - Neurology Care Team Information Compound Specialist [phone] Mohini Toribio - Gynecology Care Team Information Compound Specialist [phone] Problems Active Problems Provider Date Otitis media Ej Schilling M.D. Onset: 10/16/2011 Generalized anxiety disorder Ej Schilling M.D. Onset: 06/08/2012 Dysthymia Ej Schilling M.D. Onset: 06/08/2012 Flushing Ziyad Zhang M.D. Onset: 10/05/2019 Weight decreased Ziyad Zhang M.D. Onset: 10/05/2019 Skin sensation disturbance Ziyad Zhang M.D. Onset: 10/05/2019 Malaise and fatigue Ziyad Zhang M.D. Onset: 10/05/2019 Hypothyroidism Ziyad Zhang M.D. Onset: 01/02/2017 Social History Type Date Description Comments Sex Unknown Tobacco Use Start: Unknown nonsmoker Tobacco Use Start: Unknown nonsmoker Allergies, Adverse Reactions, Alerts Description No Known Drug Allergies Medications Active Medications SIG Qnty Indications Ordering Provider Date Valacyclovir HCL 1 by mouth three 21tabs B02.9 Carlee Kelly 11/16/2019 1gm times a day x 7 NISREEN Baird Tablets days Lorazepam take one or two 60tabs R53.83 Ziyad Chiu 10/28/2019 1mg Tablets at at bedtime as Yesenia Zhang needed for anxiety and sleep Levothyroxine Sodium Take One Tablet 30tabs Ziyad Chiu 01/18/2019 By Mouth Every Yesenia Zhang 50mcg Tablets Day Lauricidin 1 tab daily Unknown Bitter Drops 1 dropper daily Unknown History Medications Ambien use 1 hour before 30tabs Ziyad Zhang, 10/13/2019 - 5mg Tablets sleep mdd 1 M.D. 10/28/2019 Trazodone HCL take one tablet by 60tabs Ziyad Zhang, 10/05/2019 - 50mg mouth at bedtime M.D. 10/13/2019 Tablets may use two Immunizations CPT Code Status Date Vaccine Lot # [id number] Given 07/08/2018 High-Dose, Influenza Virus Vacccine-fluzone 65 and [id number] older [id number] Given 09/10/2017 High-Dose, Influenza Virus Vacccine-fluzone 65 and [id number] older 92610 Given 01/02/2017 Pneumococcal Conjugate Vacc-13 [id number] Given 07/22/2016 Influenza Vac, Quadrivalent, Slit Virus, Im [id number] 99421 Given 08/01/2015 Influenza Vac, Quadrivalent, Slit Virus, Im [id number] 32482 Given 07/01/2014 DO Not Use Split Influenza Virus Vaccine [id number] 31985 Given 07/13/2013 DO Not Use Split Influenza Virus Vaccine [id number] 62719 Given 08/05/2007 DO Not Use Split Influenza Virus Vaccine Vital Signs Date Vital Result Comment 11/16/2019 6:46pm BP Systolic 110 mmHg BP Diastolic 80 mmHg Heart Rate 72 /min Body Temperature 98.3 F Respiratory Rate 17 /min Weight 113.00 lb 10/28/2019 12:44pm BP Systolic 124 mmHg BP Diastolic 98 mmHg Heart Rate 90 /min Body Temperature 98.6 F Respiratory Rate 14 /min O2 % BldC Oximetry 97 % Results Test Acquired Date Facility Test Result H/L Range Note CBC Auto Diff 10/26/2019 [facility] White Blood 5.1 10^3/uL Normal 3.5-10.8 Count Red Blood Count 4.26 10^6/uL Normal 3.70-4.87 Hemoglobin 13.8 g/dL Normal 12.0-16.0 Hematocrit 40 % Normal 35-47 Mean Corpuscular Volume 95 fL Normal 80-97 Mean Corpuscular Hemoglobin 32 pg High 27-31 Mean Corpuscular HGB Conc 34 g/dL Normal 31-36 Red Cell Distribution Width 13 % Normal 10-15 Platelet Count 236 10^3/uL Normal 150-450 Mean Platelet Volume 8.8 fL Normal 7.4-10.4 Abs Neutrophils 3.4 10^3/uL Normal 1.5-7.7 Abs Lymphocytes 1.1 10^3/uL Normal 1.0-4.8 Abs Monocytes 0.5 10^3/uL Normal 0-0.8 Abs Eosinophils 0.1 10^3/uL Normal 0-0.6 Abs Basophils 0.0 10^3/uL Normal 0-0.2 Abs Nucleated RBC 0.0 10^3/uL Granulocyte % 67.0 % Lymphocyte % 20.8 % Monocyte % 9.4 % Eosinophil % 1.9 % Basophil % 0.9 % Nucleated Red Blood Cells % 0.1 Comp Metabolic Panel 10/26/2019 [facility] [place]odium 140 mmol/L Normal 135-145 Potassium 4.4 mmol/L Normal 3.5-5.0 Chloride 105 mmol/L Normal 101-111 Co2 Carbon Dioxide 31 mmol/L Normal 22-32 Anion Gap 4 mmol/L Normal 2-11 Glucose 119 mg/dL High 70-100 Blood Urea Nitrogen 8 mg/dL Normal 6-24 Creatinine 0.78 mg/dL Normal 0.51-0.95 BUN/Creatinine Ratio 10.3 Normal 8-20 Calcium 9.5 mg/dL Normal 8.6-10.3 Total Protein 6.9 g/dL Normal 6.4-8.9 Albumin 4.2 g/dL Normal 3.2-5.2 Globulin 2.7 g/dL Normal 2-4 Albumin/Globulin Ratio 1.6 Normal 1-3 Total Bilirubin 0.30 mg/dL Normal 0.2-1.0 Alkaline Phosphatase 67 U/L Normal 34-104 Alt 14 U/L Normal 7-52 Ast 18 U/L Normal 13-39 Egfr Non- 73.2 >60 Egfr 88.6 >60 1 Laboratory test 10/26/2019 [facility] TSH (Thyroid Stim 5.92 mcIU/mL High 0.34- 5.60 finding Horm) Free T4 (Free Thyroxine) 0.82 ng/dL Normal 0.61-1.12 Cortisol Free 24HR Urine 10/10/2019 [facility] [place]rine Free Cortisol 15 mcg/24h 3.5-45 Urine Collection Duration 24 h Urine Total Volume 1150 mL 2 Comprehensive Metabolic 10/05/2019 [facility](a) Sodium 140 mEq/L 134-149 Prof Potassium 4.6 mEq/L 3.6-5.5 Chloride 103 mEq/L 94-112 Carbon Dioxide 28 mEq/L 21-32 Glucose 106 mg/dL High 70-105 BUN 15 mg/dL 6-26 Creatinine 0.7 mg/dL 0.6-1.4 BUN/Creat Ratio 21.4 CALC 8.0-36.0 Calcium 10.2 mg/dL 8.6-10.2 Total Protein 6.8 g/dL 6.4-8.3 Albumin 4.5 g/dL 3.8-5.5 Globulin 2.3 g/dL 2.0-4.8 A/G Ratio 2.0 CALC 0.6-2.3 Alk. Phosphatase 69 U/L 30-110 Alt (SGPT) 13 U/L 7-35 Ast (Sgot) 18 U/L 5-34 Total Bilirubin 0.3 mg/dL 0.2-1.3 GFR Non- >60 ml/min/1.73m^ >=60 GFR >60 ml/min/1.73m^ >=60 Laboratory test 10/05/2019 [facility]ajero(a) Free T4 0.93 ng/dL 0.75- 1.54 finding TSH 2.02 mIU/L 0.50-6.00 Free T3 2.24 pg/mL 2.00-4.90 Laboratory test 10/05/2019 [facility] C Reactive Protein < 1.00 Normal <8.01 3 finding mg/L Laboratory test 10/05/2019 [facility] Sedimentation Rate 6mm 0-15 M finding (607)- - 0-20 F CBC Electronic 10/05/2019 [facility] WBC 5.31 4.0-10.0 (a New) (607)- - RBC 4.32 3.93-6.0 Hemoglobin (Fma/CMC/CTX) 13.7 g/dL 12.0-17.0 Hematocrit (Fma/CMC/CTX) 41.2 % 35.0-50.0 Mean Corpuscular Vol 95.4 fL High 80-95 Mean Corpuscular Hemoglobin 31.7 pg 25.6-32.2 Mean Corpuscular Hemo Concen 33.3 g/dL 32.2-36.0 Platelets 246 10^3/ul 163-400 RDW-CV 13.2 11.6-14.4 Mean Platelet Volume 10.3 fL 8.0-12.4 Absolute Neutrophils BLD 3.28 1.56-6.13 Absolute Lymphocytes 1.15 Low 1.18-3.74 Absolute Monocytes BLD Auto 0.56 0.24-0.82 Absolute Eos Blood 0.26 0.04-0.54 Absolute Basophils 0.05 0.01-0.08 Neutrophil % 61.8 % 34.0-70.0 Lymph% 21.7 % 20.0-52.0 Monocytes % 10.5 % 5.0-12.0 Eos % 4.9 % 0.7-7.0 Basophil% 0.9 % 0-1.2 CBC Auto Diff 06/05/2019 [facility] White Blood Count 6.0 10^3/uL Normal 3.5- 10.8 Red Blood Count 4.19 10^6/uL Normal 3.70-4.87 Hemoglobin 13.5 g/dL Normal 12.0-16.0 Hematocrit 40 % Normal 35-47 Mean Corpuscular Volume 94 fL Normal 80-97 Mean Corpuscular Hemoglobin 32 pg High 27-31 Mean Corpuscular HGB Conc 34 g/dL Normal 31-36 Red Cell Distribution Width 13 % Normal 10-15 Platelet Count 233 10^3/uL Normal 150-450 Mean Platelet Volume 8.1 fL Normal 7.4-10.4 Abs Neutrophils 3.4 10^3/uL Normal 1.5-7.7 Abs Lymphocytes 1.6 10^3/uL Normal 1.0-4.8 Abs Monocytes 0.6 10^3/uL Normal 0-0.8 Abs Eosinophils 0.3 10^3/uL Normal 0-0.6 Abs Basophils 0.0 10^3/uL Normal 0-0.2 Abs Nucleated RBC 0.0 10^3/uL Granulocyte % 57.0 % Lymphocyte % 27.2 % Monocyte % 9.2 % Eosinophil % 5.8 % Basophil % 0.8 % Nucleated Red Blood Cells % 0.0 Urinalysis Profile 06/05/2019 [facility] Urine Color Straw Urine Appearance Clear Urine Specific [place] 1.005 Low 1.010-1.030 Urine pH 7.0 Normal 5-9 Urine Urobilinogen Negative Negative Urine Ketones Negative Negative Urine Protein Negative Negative Urine Leukocytes Negative Negative Urine Blood Negative Negative Urine Nitrite Negative Negative Urine Bilirubin Negative Negative Urine Glucose Negative Negative Comp Metabolic Panel 06/05/2019 [facility] Sodium 140 mmol/L Normal 135-145 Potassium 3.9 mmol/L Normal 3.5-5.0 Chloride 107 mmol/L Normal 101-111 Co2 Carbon Dioxide 28 mmol/L Normal 22-32 Anion Gap 5 mmol/L Normal 2-11 Glucose 92 mg/dL Normal 70-100 Blood Urea Nitrogen 17 mg/dL Normal 6-24 Creatinine 0.78 mg/dL Normal 0.51-0.95 BUN/Creatinine Ratio 21.8 High 8-20 Calcium 9.0 mg/dL Normal 8.6-10.3 Total Protein 6.2 g/dL Low 6.4-8.9 Albumin 3.9 g/dL Normal 3.2-5.2 Globulin 2.3 g/dL Normal 2-4 Albumin/Globulin Ratio 1.7 Normal 1-3 Total Bilirubin 0.30 mg/dL Normal 0.2-1.0 Alkaline Phosphatase 62 U/L Normal 34-104 Alt 15 U/L Normal 7-52 Ast 18 U/L Normal 13-39 Egfr Non- 73.4 >60 Egfr 88.9 >60 4 Laboratory test finding 06/05/2019 [facility] C Reactive Protein < 1.00 mg/L Normal <8.01 1 Because ethnic data is not always readily available, this report includes an eGFR for both -Americans and non- Americans. The National Kidney Disease Education Program (NKDEP) does not endorse the use of the MDRD equation for patients that are not between the ages of 18 and 70, are , have extremes of body size, muscle mass, or nutritional status, or are non- or non-. According to the National Kidney Foundation, irrespective of diagnosis, the stage of the disease is based on the level of kidney function: Stage Description GFR(mL/min/1.73 m(2)) 1 Kidney damage with normal or decreased GFR 90 2 Kidney damage with mild decrease in GFR 60-89 3 Moderate decrease in GFR 30-59 4 Severe decrease in GFR 15-29 5 Kidney failure <15 (or dialysis) 2 ADDITIONAL INFORMATION This test was developed and its performance characteristics determined by [facility] in a manner consistent with CLIA requirements. This test has not been cleared or approved by the U.S. Food and Drug Administration. Test Performed by: [facility] [address] [place] [address] [place] [facility] Operator: Nitin Quiroz M.D. Ph.D.; CLIA# [id number] 4 Because ethnic data is not always readily available, this report includes an eGFR for both -Americans and non- Americans. The National Kidney Disease Education Program (NKDEP) does not endorse the use of the MDRD equation for patients that are not between the ages of 18 and 70, are , have extremes of body size, muscle mass, or nutritional status, or are non- or non-. According to the National Kidney Foundation, irrespective of diagnosis, the stage of the disease is based on the level of kidney function: Stage Description GFR(mL/min/1.73 m(2)) 1 Kidney damage with normal or decreased GFR 90 2 Kidney damage with mild decrease in GFR 60-89 3 Moderate decrease in GFR 30-59 4 Severe decrease in GFR 15-29 5 Kidney failure <15 (or dialysis) Procedures Date Code Description Status 01/20/2019 [id number] Mammogram Completed 11/26/2017 [id number] Colonoscopy Completed 01/05/2017 [id number] Mammogram Completed 02/29/2016 [id number] Bone Mineral Density Test Completed 12/31/2015 [id number] Mammogram Completed 12/27/2014 [id number] Mammogram Completed 10/20/2013 [id number] Mammogram Completed 10/11/2010 [id number] Mammogram Completed 07/05/2008 [id number] Mammogram Completed 06/25/2007 [id number] Mammogram Completed 02/01/2007 [id number] Colonoscopy Completed Medical Devices Description No Information Available Encounters Type Date Location Provider Dx Diagnosis Office Visit 10/28/2019 1:00p Main Office LAITH AlyP R53.83 Other fatigue Office Visit 10/05/2019 1:40p Main Office Ziyad DuncanManju Karonkarina, R53.83 Other fatigue M.D. E03.9 Hypothyroidism, unspecified R20.0 Anesthesia of skin R63.4 Abnormal weight loss R23.2 [place] Assessments Date Code Description Provider 11/16/2019 B02.9 Zoster without complications Carlee Baird NP 10/28/2019 R53.83 Other fatigue Denia CabralZACH maldonado 10/05/2019 R53.83 Other fatigue Ziyad Zhang M.D. 10/05/2019 E03.9 Hypothyroidism, unspecified Ziyad Zhang M.D. 10/05/2019 R20.0 Anesthesia of skin Ziyad Zhang M.D. 10/05/2019 R63.4 Abnormal weight loss Ziyad Zhang M.D. 10/05/2019 R23.2 [place]ushing Ziyad Zhang M.D. Plan of Treatment 11/16/2019 - Carlee Baird, NPB02.9 Zoster without complicationsNew Medication:Valacyclovir HCL 1 gm - 1 by mouth three times a day x 7 daysComments :If you cannot tolerate the medication or the pain, please let me know right away.AllComments:1. Patient has been queried about patient's goals/preferences and functional/lifestyle goals at relevant visits. If relevant, describe: Has been discussed, noted above2. Treatment goals as explainedto the patient: see above3. Are there barriers to meeting treatment goals? Yes If Yes, please describe: Barriers include possible insurance limits, disease process, and difficulty with lifestyle changes4. Self-Management goals as described to the patient: Yes, see above As always, we strongly encourage a healthy diet and making physical activity a part of your every day life. If you have questions about how or where to start, please contact the office. Functional Status Description No Information Available Mental Status Description No Information Available Referrals Refer to Reason for Referral Status Appt Date Navneet Treadwell Consult and treat. LT Sent [address] [place] [address] [phone]
--- OUTSIDE RECORDS SUMMARY | 2019-11-20 05:07 | XMS REPORT | Continuity of Care Document ---
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 Onset: 09/12/2014 Social History Type Date Description Comments Sex Unknown ETOH Use Denies alcohol use Tobacco Use Start: Unknown Patient has never smoked Smoking Status Reviewed: 10/27/19 Patient has never smoked Exercise Exercises regularly power walks 4-5 times Type/Frequency per week Allergies, Adverse Reactions, Alerts Active Allergies Reaction Severity Comments Date Amphetamine 03/03/2019 Vortioxetine tired 06/13/2019 Lyrica Increased pins & needles feelg 06/13/2019 Gabapentin overstimulated 06/13/2019 Inactive Allergies NKDA 09/12/2014 Medications Active Medications SIG Qnty Indications Ordering Provider Date Synthroid take one tablet by Unknown 25mcg Tablets mouth once daily as directed Multivitamin Adult 1 by mouth every Unknown day Tablets Digestive Enzymes one by mouth daily Unknown Capsules History Medications Low Dose Naltrexone take one qd ELTON Glaser 09/04/2019 - .5 MG Capsules Unknown Neomycin Sulfate 1 by mouth twice 28tabs ELTON Glaser 2018 - a day 08/22/2019 500mg Tablets Xifaxan 1 by mouth three 42tabs ELTON Glaser 07/28/2019 - 550mg Tablets times a day Unknown Celecoxib Take one cap by jack Comer, 06/20/2019 - 100mg mouth twice a M.D. Unknown Capsules day, as needed for pain Medications Administered in Office Medication SIG Qnty Indications Ordering Provider Date Depomedrol 80MG ELIU Whitney 09/15/2014 Injection Immunizations Description No Information Available Vital Signs Date Vital Result Comment 10/27/2019 3:34pm Height 61 inches 5'1" Weight 114.38 lb Heart Rate 88 /min BP Systolic 125 mmHg BP Diastolic 82 mmHg Body Temperature 98.0 F O2 % BldC Oximetry 99 % BMI (Body Mass Index) 21.6 kg/m2 08/22/2019 4:38pm Height 61 inches 5'1" Weight 115.00 lb Heart Rate 84 /min BP Systolic 124 mmHg BP Diastolic 84 mmHg Body Temperature 97.1 F O2 % BldC Oximetry 98 % BMI (Body Mass Index) 21.7 kg/m2 Results Description No Information Available Procedures Description No Information Available Medical Devices Description No Information Available Encounters Type Date Location Provider Dx Diagnosis Office Visit 08/22/2019 [facility] Mohini R53.82 Chronic fatigue, 4:30p [facility] ELTON Toribio unspecified R14.0 Abdominal distension (gaseous) Office Visit 07/18/2019 4:30p [facility] Mohini Toribio R53.82 Chronic fatigue, [facility] ELTON unspecified G62.9 Polyneuropathy, unspecified E03.9 Hypothyroidism, unspecified R14.0 Abdominal distension (gaseous) R53.83 Other fatigue Office Visit 06/20/2019 [facility] Jae Bray, Z79.899 Other long 11:00a Clinic [facility] [employer] term (current) drug therapy R53.82 Chronic fatigue, unspecified G62.9 Polyneuropathy, unspecified G25.81 Restless legs syndrome Office Visit 06/13/2019 1:00p [facility] Mohini Toribio R53.82 Chronic fatigue, [facility] ELTON unspecified E03.9 Hypothyroidism, unspecified G62.9 Polyneuropathy, unspecified Assessments Date Code Description Provider 10/27/2019 R53.82 Chronic fatigue, unspecified ELTON Glaser 10/27/2019 R14.0 Abdominal distension (gaseous) ELTON Glaser 10/27/2019 G47.00 Insomnia, unspecified Mohini Catarino, PA 10/27/2019 E03.9 Hypothyroidism, unspecified Mohini Catarino, PA 08/22/2019 R53.82 Chronic fatigue, unspecified Mohini Catarino, PA 08/22/2019 R14.0 Abdominal distension (gaseous) Mohini Catarino, PA 07/18/2019 R53.82 Chronic fatigue, unspecified Mohini Catarino, PA 07/18/2019 G62.9 Polyneuropathy, unspecified Mohini Catarino, PA 07/18/2019 E03.9 Hypothyroidism, unspecified Mohini Catarino, PA 07/18/2019 R14.0 Abdominal distension (gaseous) Mohini Catarino, PA 07/18/2019 R53.83 Other fatigue Mohini Catarino, PA 06/20/2019 Z79.899 Other director long term care (current) drug therapy Jae Bray, [employer] DEVELOPER 06/20/2019 R53.82 Chronic fatigue, unspecified Jae Bray, [employer]AVA [employer] DEVELOPER 06/20/2019 G62.9 Polyneuropathy, unspecified Jae Kncarlyleke, [employer] DEVELOPER 06/20/2019 G25.81 Restless legs syndrome Jae Bary, [employer] DEVELOPER 06/13/2019 R53.82 Chronic fatigue, unspecified Mohini Catarino, PA 06/13/2019 E03.9 Hypothyroidism, unspecified Mohini Catarion, PA 06/13/2019 G62.9 Polyneuropathy, unspecified Mohini Catarino, PA 05/04/2019 R53.82 Chronic fatigue, unspecified Eva Mckinley, [employer] DEVELOPER 05/04/2019 E03.9 Hypothyroidism, unspecified Eva Mckinley, [employer] SC[employer] DEVELOPER 05/04/2019 G62.9 Polyneuropathy, unspecified Eva Mckinley, [employer] SC[employer] DEVELOPER 05/04/2019 G25.81 Restless legs syndrome Eva Mckinley NP Plan of Treatment Future Appointment(s):11/21/2019 11:30 am - Jae Bray NP at [id number]/27/2019 - Mohini LeslieCatarino, PAR53.82 Chronic fatigue, unspecifiedRecommendations:Tina, I am re printing your instructions from before because they are still pertinent do a mindfulness practice first thing in the morning out your legs up the wall/headboard. please take DHEA 10mgdaily -- order this order from [facility], I will send you the recommendation Lourdes Merino Adrenal Thyroid revolution. You are going to continue to learn about your stress AXIS and what soothes it and protects you. Try to introduce a stress reduction practice, 15 minutes where you put your legs up the wall (yoga pose) or put an dov on your phone called mindful moments by the [facility]. Guided meditations. you will find what works best for you listen to a Lamont Easton podcast every day, he is human chamomile and also has CD's to teach meditation steamed or roasted veggies bone broth, some white rice chicken fish Drink Luis tea during the day (Holy Basil) It is good for the adrenals. power walking is not indicated this time though nature and walking are fine.R14.0 Abdominal distension (gaseous)Recommendations:I will write to Dr. Perez you will keep this appointment you are using Immodium 1/2 tablet daily til we figure this out. I believe you have SIBO and it may have switched to Hydrogen producing bacteria. Dr. Perez can test for this and you will discuss with him endoscopy, stool testing, etc continue Lauricidin 1/2 tsp daily you stopped the low dose naltrexone try to restart / .5 mg daily for a week then 2 daily for a week then 3 daily and continue til you are at at least 3mgG47.00 Insomnia, unspecifiedRecommendations:you are starting Seroquel tonight check [facility] but I forgot we already tried cortisol irbjiumT63.9 Hypothyroidism, unspecifiedRecommendations:Your TSH is 5.92 which is not at therapeutic level and Dr. Zhang can address this at next visit you shared that you were hypersensitive to a higher dose of Synthroid in the past Functional Status Description No Information Available Mental Status Description No Information Available Referrals Description No Information Available
[2019-11-20 07:05] VITALS: BP 120/80
== END 2019-11-20 07:04 | disposition home or self-care (01) ==
LOC: ED 04:41
DX: G47.00 Insomnia, unspecified (principal); T50.905A Adverse effect of unspecified drugs, medicaments and biological substances, initial encounter; Y92.9 Unspecified place or not applicable; E03.9 Hypothyroidism, unspecified; B02.9 Zoster without complications; F41.9 Anxiety disorder, unspecified; Z79.890 Hormone replacement therapy
CPT/HCPCS: 99282

== ENCOUNTER 2019-11-26 07:33 | Emergency (ER) | payer MEDICARE ==
--- NOTE | 2019-11-26 16:55 | ED ---
Psychiatric Complaint - HPI Summary HPI Summary: This patient is a 69-year-old female presenting to the ED for the second time in one month. Patient states she has severe insomnia and has tried multiple medications without relief. She currently has shingles as well and states the Neurontin she was given for pain is making her insomnia worse. She states despite trying to take Ativan, Seroquel, trazodone, Neurontin, patient states all medications have made her worse and she continues to be symptomatic of severe anxiety and insomnia. Pt states she has been seen by Dr Zhang and states she has a f/u with a psychologist but has not seen them yet. She has taken 3 ativan today already and states she feels the insomnia has worsened, denying any relief. She will sleep for 2-3 minutes and awake with heart racing. She is tearful on arrival and states she is depressed d/t lack of sleep. However, she denies SI/HI. Requesting to speak with someone from mental health. - History Of Current Complaint Chief Complaint: EDPsychosocial Time Seen by Provider: 11/26/19 07:51 Hx Obtained From: Patient Hx Last Menstrual Period: hysterectomy approx 1999 ?: No Onset/Duration: Lasting Weeks Timing: Constant Severity Initially: Mild Severity Currently: Mild Alleviating Factor(s): Nothing Associated Signs And Symptoms: Positive: Negative Has Suicidal: Reports: Thoughts Has Homicidal: Reports: Thoughts - Allergies/Home Medications Allergies/Adverse Reactions: Allergies Allergy/AdvReac Type Severity Reaction Status Date / Time No Known Allergies Allergy Verified 11/26/19 07:41 Home Medications: Home Medications Levothyroxine Sodium [Synthroid] 50 mcg PO DAILY 06/05/17 [History Confirmed ] Ibuprofen TAB* [Motrin TAB* 400 MG] 400 mg PO Q6H PRN 06/05/19 [History Confirmed 11/20/19] Gabapentin [Neurontin] 100 mg PO BID 11/20/19 [History Confirmed 11/20/19] LORazepam [Ativan 1 MG TAB] 1 - 2 mg PO BEDTIME PRN 11/20/19 [History Confirmed 11/20/19] Valacyclovir HCl [Valacyclovir] 1,000 mg PO TID 11/20/19 [History Confirmed ] traZODone TAB* [Desyrel TAB*] 50 mg PO BEDTIME #7 tab 02/29/20 [Rx] PMH/Surg Hx/FS Hx/Imm Hx Previously Healthy: Yes Endocrine/Hematology History: Reports: Hx Thyroid Disease Denies: Hx Diabetes Cardiovascular History: Denies: Hx Hypertension, Hx Pacemaker/ICD Respiratory History: Denies: Hx Asthma GI History: Reports: Other GI Disorders - Rectal prolapse History: Denies: Hx Dialysis, Hx Renal Disease Sensory History: Denies: Hx Legally Blind, Hx Deafness, Hx Hearing Aid Opthamlomology History: Denies: Hx Legally Blind Neurological History: Denies: Hx Dementia Psychiatric History: Denies: Hx Depression, Hx Panic Disorder, Hx Suicide Attempt - Cancer History Cancer Type, Location and Year: None reported Hx Chemotherapy: No Hx Radiation Therapy: No - Surgical History Surgery Procedure, Year, and Place: HYSTERECTOMY 2003;. RECTAL PROLAPSE REPAIR 2012;. MENISCUS REPAIR LEFT KNEE 2013; - Immunization History Hx Pertussis Vaccination: No Immunizations Up to Date: Yes Infectious Disease History: Yes Infectious Disease History: Denies: Traveled Outside the [place] in Last 30 Days - Family History Known Family History: Positive: Cardiac Disease - maternal - Social History Occupation: Unemployed Lives: Alone Alcohol Use: None Alcohol Amount: 1 GLASS WINE EVERY OTHER DAY Hx Substance Use: No Substance Use Type: Reports: None Hx Tobacco Use: No Smoking Status (MU): Never Smoked Tobacco Review of Systems Positive: Fatigue. Negative: Fever, Chills, Skin Diaphoresis Negative: Palpitations, Chest Pain Negative: Shortness Of Breath, Cough Genitourinary: Negative Positive: no symptoms reported, see HPI Negative: Arthralgia, Myalgia Neurological/Mental Status: Negative Positive: Anxious, Depressed All Other Systems Reviewed And Are Negative: Yes Physical Exam Triage Information Reviewed: Yes Vital Signs On Initial Exam: Initial Vitals Temp Pulse Resp BP Pulse Ox 98.1 F 87 19 128/87 99 11/26/19 07:35 11/26/19 07:35 11/26/19 07:35 11/26/19 07:35 11/26/19 07:35 Vital Signs Reviewed: Yes Appearance: Positive: Ill-Appearing, Thin Skin: Positive: Skin Color Reflects Adequate Perfusion Head/Face: Positive: Normal Head/Face Inspection Eyes: Positive: EOMI, Conjunctiva Clear Neck: Positive: Supple, No Lymphadenopathy Respiratory/Lung Sounds: Positive: Clear to Auscultation, Breath Sounds Present Cardiovascular: Positive: Tachycardia Musculoskeletal: Positive: Strength/ROM Intact Neurological: Positive: Speech Normal Psychiatric: Positive: Normal, Affect/Mood Appropriate AVPU Assessment: Alert Procedures - Sedation Patient Received Moderate/Deep Sedation with Procedure: No Diagnostics - Vital Signs Vital Signs Temp Pulse Resp BP Pulse Ox 11/26/19 13:02 75 130/84 97 11/26/19 13:00 77 98 11/26/19 12:47 79 139/81 97 11/26/19 12:46 85 96 11/26/19 10:32 123/79 11/26/19 10:02 112/77 11/26/19 09:32 71 131/81 97 11/26/19 09:02 69 119/75 95 11/26/19 09:00 70 95 11/26/19 08:32 75 114/75 96 11/26/19 08:02 79 111/81 96 11/26/19 08:01 81 95 11/26/19 07:35 98.1 F 87 19 128/87 99 - Laboratory Lab Statement: Any lab studies that have been ordered have been reviewed, and results considered in the medical decision making process. Course/Dx - Course Course Of Treatment: This patient is a 69-year-old female presenting to the ED with insomnia. All medications seem to make her worse. She is very anxious and depressed and requesting to speak with someone. Recommending trazadone at bedtime. Will give recommendations for outpatient. - Differential Dx/Clinical Impression Differential Diagnosis/HQI/PQRI: Positive: Anxiety, Depression Provider Diagnosis: Insomnia Discharge ED - Sign-Out/Discharge Documenting (check all that apply): Patient Departure - Discharge Plan Condition: Good Disposition: HOME Prescriptions: traZODone TAB* [Desyrel TAB*] 50 mg PO BEDTIME #7 tab Patient Education Materials: Anxiety (ED) Referrals: Ziyad Zhang MD [Primary Care Provider] - Additional Instructions: Per completion of a mental health evaluation, you are cleared for release and do not require inpatient psychiatric hospitalization at this time. Please go to nearest emergency room or call 911 if safety concerns arise or condition worsens. Important Phone Numbers: [facility] ph:[phone] Suicide Prevention and Crisis Services ph:[phone] National Suicide Prevention Lifeline ph:[phone] (2707) [facility] ph:[phone] Alcoholics Anonymous ph:[phone] [facility] ph:[phone] [employer] [employer] ph:[phone] RECOMMENDATIONS: - Follow up with Psychologist on Thursday (already engaged) - Contact [facility] on Thursday - Contact Office of the [facility] regarding care coordination - Contact [facility] Preferred Plan regarding care coordination - Take medications as prescribed - If symptoms worsen or desired, return to nearest Emergency Room - Billing Disposition and Condition Condition: GOOD Disposition: Home - Attestation Statements Provider Attestation: I was available for consult. This patient was seen by the [facility]. The patient was not presented to, seen by, or examined by me. Junior Barrientos MD
[2019-11-26 18:03] VITALS: BP 117/83
== END 2019-11-26 17:55 | disposition home or self-care (01) ==
LOC: ED 07:33
DX: G47.00 Insomnia, unspecified (principal); R53.83 Other fatigue; E03.9 Hypothyroidism, unspecified; Z79.890 Hormone replacement therapy
CPT/HCPCS: 99282

== ENCOUNTER 2019-12-05 11:12 | Inpatient (IN) | payer MEDICARE ==
--- NOTE | 2019-12-05 12:07 | ED ---
Complex/Multi-Sys Presentation - HPI Summary HPI Summary: Patient is a 69 y/o F presenting to the ED for a chief complaint of generalized weakness, anxiety, and insomnia. Patient states she has been walking into vargas due to weakness. Patient also reports weight loss. She stopped taking Klonopin on 12/01/19 because she believes this medication is causing her weakness. She believes the 4 medications she takes for anxiety and insomnia are not alleviating her anxiety or insomnia. Patient reports she has had insomnia for the last 6 weeks. On 12/03/19, she started Trazodone and went to [facility] where she was prescribed Klonopin. She has continued to take Ativan through this episode of anxiety, but states it only alleviates her symptoms for 2 hours before the anxiety returns. She has received mental health counselling in the past, but denies this has helped her anxiety and insomnia. Patient is requesting a mental health evaluation. On 10/26/19, patient was seen at [facility] for the same symptoms and prescribed Seroquel. PMHx is significant for thyroid problem for which she takes levothyroxine and shingles for which she takes gabapentin. Her PCP is Dr. Ziyad Zhang. - History Of Current Complaint Chief Complaint: EDWeakness Time Seen by Provider: 12/05/19 11:51 Hx Obtained From: Patient Onset/Duration: Sudden Onset, Lasting Weeks, Still Present Timing: Constant Severity Currently: Moderate Severity Initially: Moderate Associated Signs And Symptoms: Positive: Weakness - Generalized - Allergies/Home Medications Allergies/Adverse Reactions: Allergies Allergy/AdvReac Type Severity Reaction Status Date / Time No Known Allergies Allergy Verified 12/05/19 11:13 Home Medications: Home Medications Levothyroxine Sodium [Synthroid] 50 mcg PO DAILY 06/05/17 [History Confirmed 06/17] Ibuprofen TAB* [Motrin TAB* 400 MG] 400 mg PO Q6H PRN 06/05/19 [History Confirmed 12/05/19] LORazepam [Ativan 1 MG TAB] 1 - 2 mg PO BEDTIME PRN 11/20/19 [History Confirmed 12/05/19] Multivitamins/Minerals TAB* [Theragran/minerals TAB*] 1 tab PO DAILY 12/05/19 [ History Confirmed 12/05/19] clonazePAM TAB(*) [KlonoPIN TAB(*)] 1 mg PO Q8H PRN MDD 3 tabs 12/05/19 [ History Confirmed 12/05/19] PMH/Surg Hx/FS Hx/Imm Hx Previously Healthy: Yes Endocrine/Hematology History: Reports: Hx Thyroid Disease Denies: Hx Diabetes Cardiovascular History: Denies: Hx Hypertension, Hx Pacemaker/ICD Respiratory History: Denies: Hx Asthma GI History: Reports: Other GI Disorders - Rectal prolapse History: Denies: Hx Dialysis, Hx Renal Disease Sensory History: Denies: Hx Legally Blind, Hx Deafness, Hx Hearing Aid Opthamlomology History: Denies: Hx Legally Blind EENT History: Denies: Hx Deafness Neurological History: Denies: Hx Dementia Psychiatric History: Denies: Hx Depression, Hx Panic Disorder, Hx Suicide Attempt - Cancer History Cancer Type, Location and Year: None reported Hx Chemotherapy: No Hx Radiation Therapy: No - Surgical History Surgical History: Yes Surgery Procedure, Year, and Place: HYSTERECTOMY 2003;. RECTAL PROLAPSE REPAIR 2012;. MENISCUS REPAIR LEFT KNEE 2013; Infectious Disease History: Yes Infectious Disease History: Reports: Hx Shingles Denies: Traveled Outside the [place] in Last 30 Days - Family History Known Family History: Positive: Cardiac Disease - maternal - Social History Occupation: Retired Alcohol Use: Weekly Alcohol Amount: 1 GLASS WINE EVERY OTHER DAY Hx Substance Use: No Substance Use Type: Reports: None Hx Tobacco Use: No Smoking Status (MU): Never Smoked Tobacco Review of Systems Positive: Other - Positive weight loss Positive: Weakness - Generalized Psychological: Other - Positive insomnia Positive: Anxious All Other Systems Reviewed And Are Negative: Yes Physical Exam - Summary Physical Exam Summary: Appearance: The patient is well-nourished in no acute distress and in no acute pain. Skin: The skin is warm and dry, and skin color reflects adequate perfusion. HEENT: The head is normocephalic and atraumatic. The pupils are equal and reactive. The conjunctivae are clear and without drainage. Nares are patent and without drainage. Mouth reveals moist mucous membranes, and the throat is without erythema and exudate. The external ears are intact. The ear canals are patent and without drainage. The tympanic membranes are intact. Neck: The neck is supple with full range of motion and non-tender. There are no carotid bruits. There is no neck vein distension. Respiratory: Chest is non-tender. Lungs are clear to auscultation and breath sounds are symmetrical and equal. Cardiovascular: Heart is regular rate and rhythm. There is no murmur or rub auscultated. There is no peripheral edema and pulses are symmetrical and equal. Abdomen: The abdomen is soft and non-tender. There are normal bowel sounds heard in all four quadrants and there is no organomegaly palpated. Musculoskeletal: There is no back tenderness noted. Extremities are non-tender with full range of motion. There is good capillary refill. There is no peripheral edema or calf tenderness elicited. Neurological: Patient is alert and oriented to person, place and time. The patient has symmetrical motor strength in all four extremities. Cranial nerves are grossly intact. Deep tendon reflexes are symmetrical and equal in all four extremities. Psychiatric: The patient has an appropriate affect and does not exhibit any anxiety or depression. Triage Information Reviewed: Yes Vital Signs On Initial Exam: Initial Vitals Temp Pulse Resp BP Pulse Ox 97.9 F 98 16 138/98 98 12/05/19 11:13 12/05/19 11:13 12/05/19 11:13 12/05/19 11:13 12/05/19 11:13 Vital Signs Reviewed: Yes Procedures - Sedation Patient Received Moderate/Deep Sedation with Procedure: No Diagnostics - Vital Signs Vital Signs Temp Pulse Resp BP Pulse Ox 12/05/19 11:13 97.9 F 98 16 138/98 98 - Laboratory Result Diagrams: 12/05/19 12:28 12/05/19 12:28 Lab Statement: Any lab studies that have been ordered have been reviewed, and results considered in the medical decision making process. Re-Evaluation - Re-Evaluation First Eval Re-Evaluation Time: 13:15 Change: Unchanged Comment: At 13:15, patient is medically cleared for a mental health evaluation. Complex Multi-Symp Course/Dx Course Of Treatment: Ms. Kinsey was medically cleared here in the emergency department and underwent a mental health. They felt she was appropriate for voluntary admission and she agreed. - Diagnoses Provider Diagnoses: Anxiety disorder - Physician Notifications Discussed Care Of Patient With: Sriram Mann - At 14:31, tank house supervisor reports that the patients case was reviewed by Dr. Sriram Mann who will admit the patient to [facility] with a diagnosis of anxiety disorder. Time Discussed With Above Provider: 14:31 Instructed by Provider To: Admit As Inpatient Discharge ED - Sign-Out/Discharge Documenting (check all that apply): Patient Departure - Admit - Discharge Plan Condition: Stable Disposition: [facility]ATRIC FACILITY[facility] - Billing Disposition and Condition Condition: STABLE Disposition: Psychiatric Facility [facility] - Attestation Statements Document Initiated by Sariibe: Yes Documenting Scribe: Jess Hernandez Provider For Whom Keri is Documenting (Include Credential): Maninder Merida MD Scribe Attestation: Jess Calixto, scribed for Maninder Merida MD on 12/05/19 at 2038. Scribe Documentation Reviewed: Yes Provider Attestation: The documentation as recorded by the Jess mcnulty accurately reflects the service I personally performed and the decisions made by me, Maninder Merida MD Status of Scribe Document: Viewed
[2019-12-05 12:36] LABS: ABS Eosinophils 0.1 10^3/ul (0-0.6); ABS Lymphocytes 1.2 10^3/ul (1.0-4.8); ABS Monocytes 0.5 10^3/ul (0-0.8); ABS Neutrophils 3.5 10^3/ul (1.5-7.7); Eosinophil % 1.9 %; Hematocrit 40 % (35-47); Hemoglobin 13.7 g/dL (12.0-16.0); Lymphocyte % 21.7 %; Mean Corpuscular HGB Conc 34 g/dL (31-36); Mean Corpuscular Hemoglobin 32 pg (27-31); Mean Corpuscular Volume 95 fL (80-97); Nucleated Red Blood Cells % 0.1; Platelet Count 276 10^3/uL (150-450); Red Blood Count 4.25 10^6 /uL (3.70-4.87); Red Cell Distribution Width 14 % (10-15); White Blood Count 5.4 10^3/uL (3.5-10.8)
[2019-12-05 12:56] LABS: Albumin 4.1 g/dL (3.2-5.2); Albumin/Globulin Ratio 1.5 (1-3); BUN/Creatinine Ratio 18.1 (8-20); Calcium 10.1 mg/dL (8.6-10.3); EGFR African American 97.2 (>60); EGFR Non-African American 80.3 (>60); Globulin 2.7 g/dL (2-4); Magnesium 2.1 mg/dL (1.9-2.7); Potassium 4.1 mmol/L (3.5-5.0); Total Bilirubin 0.4 mg/dL (0.2-1.0); Total Protein 6.8 g/dL (6.4-8.9)
[2019-12-05 13:26] LABS: TSH (Thyroid Stimulating Horm) 1.8 mcIU/mL (0.34-5.60)
[2019-12-05] MEDS ORDERED: Al Hydrox/Mg Hydrox/Simet LIQ* 30 ML UDC PO PRN (14:50)
[2019-12-05] MEDS ORDERED: Acetaminophen TAB* 325 MG PO PRN (14:50)
[2019-12-05] MEDS ORDERED: Ibuprofen TAB* 400 MG PO PRN (14:51)
[2019-12-05 15:09] LABS: Urine Appearance Clear; Urine Bilirubin Negative (Negative); Urine Blood Negative (Negative); Urine Color Yellow; Urine Glucose Negative (Negative); Urine Ketones Negative (Negative); Urine Nitrite Negative (Negative); Urine Protein Negative (Negative); Urine Specific Gravity 1.009 (1.010-1.030); Urine Urobilinogen Negative (Negative)
[2019-12-05] MEDS: hydrOXYzine HCL TAB* 25 MG PO PRN ×2 (18:24→23:32)
[2019-12-05] MEDS: Zolpidem TAB* 5 MG PO PRN (20:32)
[2019-12-05] MEDS ORDERED: QUEtiapine TAB* 25 MG PO SCH (21:00)
[2019-12-06] MEDS: hydrOXYzine HCL TAB* 25 MG PO PRN (07:44)
[2019-12-06] MEDS: Levothyroxine TAB* 50 MCG TAB PO SCH (07:44)
[2019-12-06] MEDS: Multivitamins/Minerals TAB PO SCH (07:44)
[2019-12-06 07:54] LABS: HDL Cholesterol 51.3 mg/dL
[2019-12-06] MEDS: Gabapentin CAP(*) 300 MG PO SCH ×2 (12:34→21:41)
[2019-12-06] MEDS: clonazePAM TAB(*) 0.5 MG PO PRN (16:18)
[2019-12-06] MEDS ORDERED: QUEtiapine TAB* 25 MG PO SCH (21:00)
[2019-12-06] MEDS: Zolpidem TAB* 5 MG PO PRN (21:42)
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
[2019-12-07] MEDS: hydrOXYzine HCL TAB* 25 MG PO PRN (01:50)
[2019-12-07] MEDS: clonazePAM TAB(*) 0.5 MG PO PRN (01:50)
[2019-12-07] MEDS: Levothyroxine TAB* 50 MCG TAB PO SCH (08:41)
[2019-12-07] MEDS: Gabapentin CAP(*) 300 MG PO SCH ×2 (10:09→20:59)
[2019-12-07] MEDS: Multivitamins/Minerals TAB PO SCH (10:09)
--- NOTE | 2019-12-07 14:57 | PN ---
Subjective - Subjective Date of Service: 12/07/19 Service Type: 64583 Hosp care 25 min moderate complexity Subjective: Patient reports sleeping intermittently 11pm to 0330. She then slept until approx 11am. She reports this is improved from only sleeping 2-3 hours total per night. Patient education done regarding sleep hygiene. She inquires about gabapentin causing leg weakness and is informed that it is likely due to sleep deprivation. She reports increased palpitations after taking hydroxyzine. We discussed risks of ambien and provider preference to optimize other medications. Patient agrees to DC ambien and hydroxyzine; agrees to increased doses of quetiapine and clonazepam. Objective - General Observations Appearance: Well Groomed Stature: Thin Posture: Slumped Eye Contact: Average Behavior/Activity: WNL - Interaction Observations Attitude Towards Examiner: Cooperative Stated Mood: Anxious Affect: Restricted Speech Pattern/Tone: Clear, Appropriate, Normal Volume Thought Process: Circumstantial Perception: WNL Thought Content: Preoccupation/Ruminations Thought Process: Lethality: Passive Wish Hallucination Type: Denies Delusion Type: Denies - Cognitive Function Orientation: A&O x 4 Level of Consciousness: Alert Cognition: Impaired Attention/Concentration Estimated Intelligence: Normal Insight: Difficulty Acknowledging Presence of Psyciatric Problems Judgment Within Normal Limits: No Ability to Make Reasonable Decisions: Moderately Impaired - Medication Compliance Cooperative with Inpatient Medication Regimen: Yes - Group Participation Participates in Group Activities: Yes Assessment - Assessment Merits Inpatient Hospitalization: For Immediate Safety, For Stabilization Inpatient DSM-V Dx: F39 Clinical Impression: 69yo wf, domiciled, twice, 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 Her family history is significant for bipolar disorder and substance abuse. She merits hospitalization for immediate safety and stabilization. Plan - Plan Treatment Plan: Name: MANDY CORREIA Birthdate: 1950 [id number] continue acute intensive psychiatric treatment. may decrease to q30min and allow staff pass. increase quetiapine to 300mg qhs and clonazepam dose to 1mg. DC ambien. DC hydroxyzine. utilize technology to assist with sleep. (ie. guided imagery, progressive muscle relaxation, meditation). Continued Medication Management: Start Medication Medications: Current Medications Acetaminophen (Tylenol Tab*) 650 mg PO Q4H PRN PRN Reason: for pain; or Temp >101 F Al Hydrox/Mg Hydrox/Simethicone (Maalox Plus*) 30 ml PO Q4H PRN PRN Reason: INDIGESTION Clonazepam (Klonopin Tab(*)) 1 mg PO BID PRN PRN Reason: anxiety/insomnia Gabapentin (Neurontin Cap(*)) 300 mg PO BID [facility] Last Admin: 12/07/19 10:09 Dose: Not Given Hydroxyzine HCl (Atarax Tab*) 25 mg PO Q6H PRN PRN Reason: ANXIETY Last Admin: 12/07/19 01:50 Dose: 25 mg Ibuprofen (Motrin Tab*) 400 mg PO Q6H PRN PRN Reason: PAIN-MODERATE/TEMP >/= 100.4 Levothyroxine Sodium (Synthroid Tab*) 50 mcg PO DAILY@0600 [facility] Last Admin: 12/07/19 08:41 Dose: 50 mcg Multivitamins/Minerals (Theragran/Minerals Tab*) 1 tab PO DAILY [facility] Last Admin: 12/07/19 10:09 Dose: Not Given Quetiapine Fumarate (Seroquel Tab*) 300 mg PO BEDTIME [facility] - Discharge Plan Discharge Plan: Inpatient Hospitalization
--- NOTE | 2019-12-07 16:01 | PN ---
BSU: Group Therapy Note - Service Type Service Type: [id number] Group Psychotherapy - Eager to participate. Had good insights. Pleasant in group. - Group Participation Patient Participating in Group: Yes Level of Group Participation: Attentive, Spontaneously Participate Relatedness to Group: Well Related
[2019-12-07] MEDS: QUEtiapine TAB* 300 MG PO SCH (20:59)
[2019-12-08] MEDS: clonazePAM TAB(*) 1 MG PO PRN (01:36)
[2019-12-08] MEDS: Multivitamins/Minerals TAB PO SCH (09:27)
[2019-12-08] MEDS: Levothyroxine TAB* 50 MCG TAB PO SCH (09:27)
[2019-12-08] MEDS: Gabapentin CAP(*) 300 MG PO SCH ×2 (09:27→21:04)
--- NOTE | 2019-12-08 10:24 | PN ---
Subjective - Subjective Date of Service: 12/08/19 Service Type: 60748 Hosp care 15 min low complexity Subjective: Patient reported decreased anxiety to staff. According to the sleep log, she has been sleeping moreso than her report. During conversation with chief writer, she reports sleep was "worse than the night before" and is anxious about lack of sleep. She c/o restless legs and attributes this to clonazepam. Patient education done regarding akathesia. She requests increase in quetiapine but chief writer advises to remain at current dose and to continue with sleep hygiene. She is encouraged to remain out of bed from breakfast to bedtime. She is utilizing nonpharmalogic techniques for anxiety and cognitive distortions. She reports wanting to talk to someone about grief surrounding her sister's . She agrees to a paper rewinder operator consult. Objective - General Observations Appearance: Well Groomed Stature: Thin Posture: WNL Eye Contact: Average Behavior/Activity: WNL - Interaction Observations Attitude Towards Examiner: Cooperative, Anxious Stated Mood: Dysphoric Affect: Restricted Speech Pattern/Tone: Clear, Appropriate, Quiet Volume Thought Process: Coherent, Circumstantial Thought Content: Preoccupation/Ruminations Hallucination Type: Denies Delusion Type: Denies - Cognitive Function Orientation: A&O x 4 Level of Consciousness: Alert Cognition: Impaired Attention/Concentration Estimated Intelligence: Normal Insight: Difficulty Acknowledging Presence of Psyciatric Problems Judgment Within Normal Limits: No Ability to Make Reasonable Decisions: Moderately Impaired - Medication Compliance Cooperative with Inpatient Medication Regimen: Yes - Group Participation Participates in Group Activities: Yes Assessment - Assessment Merits Inpatient Hospitalization: For Immediate Safety, For Stabilization Inpatient DSM-V Dx: F39 Clinical Impression: 69yo wf, domiciled, twice, 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 Her family history is significant for bipolar disorder and substance abuse. She merits hospitalization for immediate safety and stabilization. Plan - Plan Treatment Plan: Name: MANDY CORREIA Birthdate: 1950 [id number] continue acute intensive psychiatric treatment. may decrease to q30min and allow staff pass. continue medications as ordered. utilize technology to assist with sleep. (ie. guided imagery, progressive muscle relaxation, meditation). Medications: Current Medications Acetaminophen (Tylenol Tab*) 650 mg PO Q4H PRN PRN Reason: for pain; or Temp >101 F Al Hydrox/Mg Hydrox/Simethicone (Maalox Plus*) 30 ml PO Q4H PRN PRN Reason: INDIGESTION Clonazepam (Klonopin Tab(*)) 1 mg PO BID PRN PRN Reason: anxiety/insomnia Last Admin: 12/08/19 01:36 Dose: 1 mg Gabapentin (Neurontin Cap(*)) 300 mg PO BID [facility] Last Admin: 12/08/19 09:27 Dose: 300 mg Ibuprofen (Motrin Tab*) 400 mg PO Q6H PRN PRN Reason: PAIN-MODERATE/TEMP >/= 100.4 Levothyroxine Sodium (Synthroid Tab*) 50 mcg PO DAILY@0600 [facility] Last Admin: 12/08/19 09:27 Dose: 50 mcg Multivitamins/Minerals (Theragran/Minerals Tab*) 1 tab PO DAILY [facility] Last Admin: 12/08/19 09:27 Dose: 1 tab Quetiapine Fumarate (Seroquel Tab*) 300 mg PO BEDTIME [facility] Last Admin: 12/07/19 20:59 Dose: 300 mg - Discharge Plan Discharge Plan: Inpatient Hospitalization
[2019-12-08] MEDS: QUEtiapine TAB* 300 MG PO SCH (21:04)
[2019-12-09] MEDS: Gabapentin CAP(*) 300 MG PO SCH (09:19)
[2019-12-09] MEDS: Multivitamins/Minerals TAB PO SCH (09:20)
[2019-12-09] MEDS: Levothyroxine TAB* 50 MCG TAB PO SCH (09:20)
--- NOTE | 2019-12-09 16:18 | PN ---
Subjective - Subjective Date of Service: 12/09/19 Service Type: 53772 Hosp care 25 min moderate complexity Subjective: Patient reports starting to ruminate and worry about sleep last night around 1930. She reports participating in bedtime routine, including relaxation and reading, and falling asleep around 2200. She recalls waking at 0300, then lying awake for an extended time, then being awakened by staff at 0700 for VS. During conversation, patient appears skeptical of information from staff that she slept throughout the night. Patient c/o feeling "drugged" this morning and relates this to klonopin. with prompting, patient identified that she has not had klonopin since the previous night. She inquires about changing medication regimen. Barrel Cleaner reiterates that medication trials of a few days are not sufficient, which has historically been her pattern. Patient reports improved anxiety and denies panic for the past 2 days. We discuss potential of diagnosis on bipolar spectrum and patient denies periods of albaro or hypomania. She states that a past therapist has mentioned possibility of "agitated depression." After the conversation, comic writer reviewed with patient sleep log documented by staff that denotes she was sleeping the entire night stocker with exception of two separate entries when she was lying down. She was surprised and appreciative of this information. Objective - General Observations Appearance: Well Groomed Stature: Thin Posture: WNL Eye Contact: Average Behavior/Activity: WNL - Interaction Observations Attitude Towards Examiner: Cooperative, Anxious Stated Mood: Dysphoric Affect: Restricted Speech Pattern/Tone: Appropriate, Quiet Volume Thought Process: Circumstantial, Impoverished Perception: WNL Thought Content: Preoccupation/Ruminations Hallucination Type: Denies Delusion Type: Denies - Cognitive Function Orientation: A&O x 4 Level of Consciousness: Alert Cognition: Impaired Memory, Impaired Attention/Concentration Estimated Intelligence: Normal Insight: Difficulty Acknowledging Presence of Psyciatric Problems Judgment Within Normal Limits: No Ability to Make Reasonable Decisions: Moderately Impaired - Medication Compliance Cooperative with Inpatient Medication Regimen: Yes - Group Participation Participates in Group Activities: Yes Assessment - Assessment Merits Inpatient Hospitalization: For Immediate Safety, For Stabilization, Consolidate Improvements Inpatient DSM-V Dx: F39 Clinical Impression: 69yo wf, domiciled, twice, 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 Her family history is significant for bipolar disorder and substance abuse. She merits hospitalization for immediate safety and stabilization. Plan - Plan Treatment Plan: Name: MANDY CORREIA Birthdate: 1950 [id number] continue acute intensive psychiatric treatment. may decrease to q30min and allow staff pass and computer use. increase gabapentin HS dose to 400mg; continue other medications as ordered. utilize technology to assist with sleep. (ie. guided imagery, progressive muscle relaxation, meditation). Continued Medication Management: Start Medication Medications: Current Medications Acetaminophen (Tylenol Tab*) 650 mg PO Q4H PRN PRN Reason: for pain; or Temp >101 F Al Hydrox/Mg Hydrox/Simethicone (Maalox Plus*) 30 ml PO Q4H PRN PRN Reason: INDIGESTION Clonazepam (Klonopin Tab(*)) 1 mg PO BID PRN PRN Reason: anxiety/insomnia Last Admin: 12/08/19 01:36 Dose: 1 mg Gabapentin (Neurontin Cap(*)) 400 mg PO BEDTIME [facility] Gabapentin (Neurontin Cap(*)) 300 mg PO DAILY [facility] Ibuprofen (Motrin Tab*) 400 mg PO Q6H PRN PRN Reason: PAIN-MODERATE/TEMP >/= 100.4 Levothyroxine Sodium (Synthroid Tab*) 50 mcg PO DAILY@0600 [facility] Last Admin: 12/09/19 09:20 Dose: 50 mcg Multivitamins/Minerals (Theragran/Minerals Tab*) 1 tab PO DAILY [facility] Last Admin: 12/09/19 09:20 Dose: 1 tab Quetiapine Fumarate (Seroquel Tab*) 300 mg PO BEDTIME [facility] Last Admin: 12/08/19 21:04 Dose: 300 mg - Discharge Plan Discharge Plan: Inpatient Hospitalization
[2019-12-09] MEDS: QUEtiapine TAB* 300 MG PO SCH (21:09)
[2019-12-09] MEDS: Gabapentin CAP(*) 400 MG PO SCH (21:10)
[2019-12-10] MEDS: Gabapentin CAP(*) 300 MG PO SCH ×2 (09:22→22:42)
[2019-12-10] MEDS: Multivitamins/Minerals TAB PO SCH (09:24)
[2019-12-10] MEDS: Levothyroxine TAB* 50 MCG TAB PO SCH (09:24)
[2019-12-10] MEDS: QUEtiapine TAB* 300 MG PO SCH (21:03)
[2019-12-10] MEDS ORDERED: Gabapentin CAP(*) 300 MG ONE (22:04)
[2019-12-11] MEDS: Gabapentin CAP(*) 400 MG PO SCH
[2019-12-11] MEDS: Levothyroxine TAB* 50 MCG TAB PO SCH (08:44)
[2019-12-11] MEDS: Multivitamins/Minerals TAB PO SCH (08:44)
[2019-12-11] MEDS: Gabapentin CAP(*) 300 MG PO SCH ×2 (08:45→20:57)
[2019-12-11] MEDS: clonazePAM TAB(*) 1 MG PO PRN (10:50)
--- NOTE | 2019-12-11 16:45 | PN ---
Subjective - Subjective Date of Service: 12/11/19 Service Type: 86029 Hosp care 25 min moderate complexity Subjective: Mandy wanted to see this typewriter assembly and parts inspector since morning to discuss her meds. Earlier she complained of feeling tremors of her hands and attributed that to increase of Gabapentin which was lowered to 300mg per patient request. However, she continued to be focused on her med and requested for Xanax or Lorazepam which was declined. Advised her to discuss that with her regular prescriber. Reports of good sleep and appetite. Denies SI, HI or psychosis. Objective - General Observations Appearance: Neat, Well Groomed Appears Stated Age: Yes Stature: Thin Posture: WNL Eye Contact: Average Behavior/Activity: WNL - Interaction Observations Attitude Towards Examiner: Manipulative Stated Mood: Euthymic Affect: Full Speech Pattern/Tone: Clear, Appropriate, Normal Volume Thought Process: Coherent, Goal Directed Perception: WNL Thought Content: WNL Hallucination Type: Denies Delusion Type: Denies - Cognitive Function Orientation: A&O x 4 Level of Consciousness: Awake, Alert, Appropriate Cognition: WNL Estimated Intelligence: Normal Insight: Mostly Blames Others for Problems Judgment Within Normal Limits: No Ability to Make Reasonable Decisions: Moderately Impaired - Medication Compliance Cooperative with Inpatient Medication Regimen: Yes - Group Participation Participates in Group Activities: Yes Assessment - Assessment Merits Inpatient Hospitalization: For Stabilization, For Ongoing Evaluation, For Discharge Planning Inpatient DSM-V Dx: F39 Clinical Impression: 69yo wf, domiciled, twice, 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 Her family history is significant for bipolar disorder and substance abuse. She merits hospitalization for immediate safety and stabilization. Plan - Plan Treatment Plan: Name: MANDY CORREIA Birthdate: 1950 [id number] continue acute intensive psychiatric treatment. may decrease to q30min and allow staff pass and computer use. increase gabapentin HS dose to 400mg; continue other medications as ordered. utilize technology to assist with sleep. (ie. guided imagery, progressive muscle relaxation, meditation). Continued Medication Management: Continue Outpt Medication Medications: Current Medications Acetaminophen (Tylenol Tab*) 650 mg PO Q4H PRN PRN Reason: for pain; or Temp >101 F Last Admin: 12/10/19 16:44 Dose: 650 mg Al Hydrox/Mg Hydrox/Simethicone (Maalox Plus*) 30 ml PO Q4H PRN PRN Reason: INDIGESTION Clonazepam (Klonopin Tab(*)) 1 mg PO BID PRN PRN Reason: anxiety/insomnia Last Admin: 12/11/19 10:50 Dose: 1 mg Gabapentin (Neurontin Cap(*)) 300 mg PO DAILY [facility] Last Admin: 12/11/19 08:45 Dose: 300 mg Gabapentin (Neurontin Cap(*)) 300 mg PO BEDTIME [facility] Last Admin: 12/10/19 22:42 Dose: Not Given Ibuprofen (Motrin Tab*) 400 mg PO Q6H PRN PRN Reason: PAIN-MODERATE/TEMP >/= 100.4 Levothyroxine Sodium (Synthroid Tab*) 50 mcg PO DAILY@0600 [facility] Last Admin: 12/11/19 08:44 Dose: 50 mcg Multivitamins/Minerals (Theragran/Minerals Tab*) 1 tab PO DAILY [facility] Last Admin: 12/11/19 08:44 Dose: 1 tab Quetiapine Fumarate (Seroquel Tab*) 300 mg PO BEDTIME [facility] Last Admin: 12/10/19 21:03 Dose: 300 mg - Discharge Plan Discharge Plan: Outpatient Follow Up Outpatient Program: [facility]
[2019-12-11] MEDS: QUEtiapine TAB* 300 MG PO SCH (20:57)
[2019-12-12] MEDS: Gabapentin CAP(*) 300 MG PO SCH (08:04)
[2019-12-12] MEDS: Levothyroxine TAB* 50 MCG TAB PO SCH (08:05)
[2019-12-12] MEDS: Multivitamins/Minerals TAB PO SCH (08:05)
[2019-12-12 08:57] VITALS: BP 125/88
--- NOTE | 2019-12-12 23:26 | DS ---
CC: Dr. Zhang; [facility] * DISCHARGE SUMMARY: DATE OF ADMISSION: 12/05/19 DATE OF DISCHARGE: 12/12/19 SUPERVISING PSYCHIATRIST: Dr. Sriram Mann.* (DICTATED BY CORNELIUS HESTER NP) DISCHARGE DIAGNOSES: Unspecified bipolar disorder, panic disorder. CONDITION AT THE TIME OF DISCHARGE: Improved. The patient is euthymic with bright affect. She reports feeling rested and appreciates improved sleep over the past few days. She request to be discharged and submitted a 72 hour notice. She is circumstantial about benzodiazepine medication and is encouraged to use this sparingly, temporarily until meeting with psychiatrist at [facility]. This credit underwriter spoke to her son, Matthew and was given update on her improved sleep and mood. He was appreciative of this. He denies concern with her being discharged today. The patient is discharged to home. MENTAL STATUS EXAM: The patient is a 69-year-old white female who appears slightly younger than stated age. She is thin framed, casually dressed in her own clothing, wearing leggings and a zip-up sweatshirt. She sits with adequate posture. She is well groomed and has improved pallor. Her hair is dark brown and well-groomed. She is alert and oriented x3. Eye contact is good. Speech is soft, articulate, spontaneous. Concentration, good. Memory 3/3. Mood is euthymic with bright affect. No abnormal psychomotor activity noted. Thought process is goal directed and coherent. Thought content is negative for suicidal ideation or passive wish. She denies HI or . She denies auditory or visual hallucinations. There are no perceptual disturbances noted. Insight and judgment are fair, improved. She has at least an average intellect by virtual vocabulary and educational attainment. Fund of knowledge is adequate. INSTRUCTIONS GIVEN TO THE PATIENT: A. Medications: 1. Clonazepam 1 mg p.o. daily p.r.n., quantity 7 for anxiety or insomnia. 2. Gabapentin 300 mg p.o. b.i.d. 3. Quetiapine 300 mg p.o. q.h.s. B. Diet: Regular, SIBO diet per the patient. C. Activity: Ambulation as tolerated. Tobacco cessation is not applicable. There are no pending labs or diagnostic studies. D. Followup care: The patient was referred to [facility] for ongoing mental health counseling and to be referred to Psychiatry. She will follow up with her primary care provider, Dr. Zhang tomorrow, 12/13/19. E. Substance use followup: Not applicable. HOSPITAL COURSE: Part A: Reason for admission: The patient presented to the emergency department due to weakness, anxiety, and insomnia. She reports these to be incapacitating symptoms and feeling exasperated. 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 She reports worsening insomnia for the last 6 weeks. She states that it started approximately in the fall after an onset of SIBO and then it worsened in September. She reports trialing various medications through her primary care provider's office, [facility] and with psychiatric nurse practitioner, Isabel Gomez in the past. She endorses paradoxical effects from medications that are sedating in nature, for example, she reports heart palpitations and feelings of increased adrenaline when taking trazodone, antihistamines and some other serotonergic medications. The patient is a good historian and gives wonderful detailed information. She states that she was seen in the emergency room a couple of weeks ago and given lorazepam, which helped initially. She states this stopped working after a couple weeks and now the effect only lasts about 2 hours after she takes it. She states that she has trialed many various medications including Ativan and Klonopin. She reports after taking Klonopin 2 days ago, she had difficulty with motor skills. It is also possible that sleep deprivation was actually what was making her coordination worse. Nonetheless, she has trialed Seroquel recently. She states last night after receiving Seroquel and Ambien, she slept about 3 hours, which is more than she has been sleeping. The patient reports decreased appetite. She had been placed on a strict diet after GI diagnosis last fall. She reports difficulty concentrating , feeling like she is in a fog. She denies past suicide attempts or self-harm attempts. She denies tia suicidal ideation; however, she reports feeling hopeless, helpless, and "at her wits end." She states she is very confused that this is happening to her at this stage of her life. She states this is the least chaotic time in her life. 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 She reports recently attending groups at hospice related to grief surrounding her sister's last April. She states that her sister likely had untreated bipolar disorder and due to complications related to COPD. Part B: Psychiatric treatment rendered: The patient was admitted to adult behavioral services unit on voluntary status. Code status was full. She was placed on 15 minute checks for safety. This was decreased to 30-minute observation and she was allowed to go on staff pass. Initially, quetiapine was titrated to 100 mg and she agreed to trial gabapentin as she had only this once and not given it a full therapeutic trial. We eventually titrated gabapentin to 300 mg twice a day. She reported wanting an increase in this medicine, so I increased the bedtime dose to 400 mg. This was decreased back to 300 mg after she expressed concern about tremors in her hands. She requested Xanax or lorazepam multiple times and was informed about the safer profile with clonazepam, to use on a temporary basis. She inquired about increasing quetiapine dose, credit underwriter advised against this due to her age and increasing it too rapidly may cause untoward effects. The patient was noted to have increased periods of sleep even when she did not realize that. The patient's perception of sleep was less than reported by staff. I gave the information to her about checks done denoting the staff noted her to be fully asleep. This information was helpful to her. We think that Medina will do well in outpatient services. She is eager to participate in counseling. She was given much information about CDT, sleep hygiene and nonpharmacological ways to cope with anxiety. CORNELIUS HESTER NP [id number]/[facility] #: [id number] JOSE
== END 2019-12-12 15:30 | disposition home or self-care (01) | DRG 885 ==
LOC: ED 11:12 → BSU 14:50
PROVIDERS: ADMIT Psychiatry & Neurology Psychiatry; ATTEND Psychiatry & Neurology Psychiatry
DX: F31.9 Bipolar disorder, unspecified (principal); F41.0 Panic disorder [episodic paroxysmal anxiety]; F39 Unspecified mood [affective] disorder; G47.00 Insomnia, unspecified; E03.9 Hypothyroidism, unspecified; G62.9 Polyneuropathy, unspecified; Z79.899 Other long term (current) drug therapy; Z81.8 Family history of other mental and behavioral disorders; Z81.3 Family history of other psychoactive substance abuse and dependence; Z81.1 Family history of alcohol abuse and dependence
CPT/HCPCS: 36415; 80053; 80061; 81003; 83036; 83605; 83735; 84443; 84484; 85025; 90853; 99222; 99231; 99232; 99238; 99284; A9270-GY